=== PATIENT | male | born 1960 | race Caucasian/White ===

== ENCOUNTER → 2016-04-18 | Outpatient (CLI) | payer BC ==
[2016-04-18 10:35] LABS: MICROSCOPIC INDICATED? MAN NO (NO)
== END ==
LOC: M LAB 07:37
PROVIDERS: ATTEND Internal Medicine Cardiovascular Disease
DX: I10 Essential (primary) hypertension (principal)

== ENCOUNTER → 2016-04-18 | Outpatient (CLI) | payer BC ==
--- NOTE | 2016-04-18 10:12 | REP ---
CHEST, TWO VIEWS: Two views of the chest is performed. There are no prior studies for comparison. There is a somewhat nodular opacity medially at the left lung base on the retrocardiac region measuring 1.7 cm in diameter. There is no definite infiltrate. The heart appears mildly prominent in size. There is some tortuosity of the thoracic aorta. There are degenerative changes of the spine. IMPRESSION: Somewhat nodular opacity medial left base. Recommend CT of the chest to further evaluate. No infiltrate. Probable mild cardiomegaly. Signed by Caleb Hernández MD 04/18/2016 01:13 P
== END ==
LOC: M RAD 07:20
PROVIDERS: ATTEND Family Medicine
DX: I10 Essential (primary) hypertension (principal); R91.8 Other nonspecific abnormal finding of lung field

== ENCOUNTER → 2016-04-24 | Outpatient (CLI) | payer BC ==
[~2016-04-24] MED LIST: ISOVUE-370 76% 100ML VIAL (Q9967) As Ordered ONE
--- NOTE | 2016-04-25 04:37 | REP ---
Clinical: Possible nodule by recent chest x-ray. Technique: Axial contrast enhanced images from the thoracic inlet to the upper abdomen using 100 ml Isovue 370 intravenous contrast material with coronal and sagittal re-formations. Findings: The bilateral lung ocasio are well-aerated, symmetric, and clear. No acute pulmonary parenchymal consolidation, nodule or mass lesion is appreciated. No pleural effusion/reaction or pneumothorax. Tracheobronchial tree is patent. No adenopathy. Mediastinum demonstrates normal heart/pericardium and thoracic aorta. Limited upper abdomen demonstrates fatty infiltration to the liver. Impression: 1. Normal contrast enhanced chest CT. 2. Suspicious opacity by a recent chest x-ray may have represented summation shadows rather than true nodule or mass lesion. Signed by Darien Iniguez MD 04/25/2016 04:29 A
== END ==
LOC: M RAD 13:56
PROVIDERS: ATTEND Family Medicine
DX: R91.8 Other nonspecific abnormal finding of lung field (principal)
CPT/HCPCS: 71260; Q9967

== ENCOUNTER → 2016-05-02 | Outpatient (CLI) | payer BC ==
[2016-05-02 13:15] LABS: ANION GAP 6 MEQ/L (8-16); BLOOD UREA NITROGEN 21 MG/DL (7-18); CALCIUM LEVEL 9.2 MG/DL (8.5-10.1); CARBON DIOXIDE LEVEL 32 MEQ/L (21-32); CHLORIDE LEVEL 102 MEQ/L (98-107); GLOMERULAR FILTRATION RATE > 60.0 (>56); GLUCOSE, FASTING 126 MG/DL (70-105); POTASSIUM SERUM 4.1 MEQ/L (3.5-5.1); SODIUM LEVEL 140 MEQ/L (136-145)
== END ==
LOC: M SMT 09:22
PROVIDERS: ATTEND Family Medicine
DX: E11.9 Type 2 diabetes mellitus without complications (principal)

== ENCOUNTER → 2016-06-22 | Outpatient (CLI) | payer BC ==
--- NOTE | 2016-06-24 13:36 | SLEEPCENT ---
DATE OF STUDY: 06/22/2016 ORDERING PROVIDER: Shannon Jessica NP Nocturnal polysomnography was performed for evaluation of sleep apnea syndrome symptoms in this patient with a history of hypertension and diabetes. 8 hours and 12 minutes of data were reviewed. There were 384 minutes of sleep identified. Sleep latency was short at 5.5 minutes. Rapid eye movement (REM) sleep was prolonged at 233 minutes. Sleep architecture improved after interventions were made. Overall sleep efficiency was 79%. The patient's electrocardiogram (EKG) showed a sinus rhythm with an average heart rate of 60 beats per minute. Rate variability was seen surrounding respiratory events. Rate ranged 50-80 beats per minute. Electroencephalogram (EEG) showed fairly normal waveforms for awake and sleep. There were no focal events identified. There were 209 respiratory events identified of 10 seconds in duration or greater for an apnea-hypopnea index of 32.6. The events were primarily obstructive, not exclusive to sleep stage or body posture. Arousals from respiratory events occurred 21.8 times per hour, and oxygen desaturations were seen into the 70s. Having met established protocol, testing was stopped shortly after midnight for the application of pressure therapy. The patient was fit with a [employer] Quattro full face mask of large size. 5 cm of water pressure were applied to the circuit, and the lights were extinguished. Throughout the remaining portion of the study, pressure was titrated to an optimal of 13 cm, with which the patient slept through REM without respiratory event or oxygen desaturation. Some minor snoring through the mask was noted. IMPRESSION: Severe obstructive sleep apnea syndrome (G47.33). Apnea-hypopnea index 32.6. RECOMMENDATION: Nightly use of pressure therapy 13 cm of water.
== END ==
LOC: M SLEEP 19:50
PROVIDERS: ATTEND Nurse Practitioner Adult Health
DX: G47.33 Obstructive sleep apnea (adult) (pediatric) (principal)

== ENCOUNTER → 2016-07-11 | Outpatient (CLI) | payer BC ==
[2016-07-11 14:09] LABS: ALBUMIN 3.6 GM/DL (3.2-5.2); ALBUMIN/GLOBULIN RATIO 1.06 (1.00-1.93); ALKALINE PHOSPHATASE 71 U/L (45-117); ALT/SGPT 47 U/L (12-78); ANION GAP 7 MEQ/L (8-16); AST/SGOT 25 U/L (15-37); BILIRUBIN,TOTAL 0.8 MG/DL (0.2-1.0); BLOOD UREA NITROGEN 23 MG/DL (7-18); CALCIUM LEVEL 8.5 MG/DL (8.5-10.1); CARBON DIOXIDE LEVEL 32 MEQ/L (21-32); CHLORIDE LEVEL 101 MEQ/L (98-107); GLOMERULAR FILTRATION RATE > 60.0 (>56); GLUCOSE, FASTING 141 MG/DL (70-105); SODIUM LEVEL 140 MEQ/L (136-145)
== END ==
LOC: M SMT 08:00
PROVIDERS: ATTEND Family Medicine
DX: E11.9 Type 2 diabetes mellitus without complications (principal)

== ENCOUNTER → 2016-10-09 | Outpatient (CLI) | payer BC ==
[2016-10-09 13:39] LABS: BASO % 0.5 % (0.0-1.0); EOS # 0.2 K/mm3 (0.0-0.50); EOS % 2.3 % (0.0-3.0); LARGE UNSTAINED CELL # 0.1 K/mm3 (0.0-0.4); LARGE UNSTAINED CELL % 1.5 % (0.0-4.0); LYMPH # 1.6 K/mm3 (1.5-4.5); LYMPH % 22.8 % (24.0-44.0); MEAN CORPUSCULAR HEMOGLOBIN 30.5 pg (27.0-33.0); MEAN CORPUSCULAR HGB CONC 35.1 g/dl (32.0-36.5); MEAN CORPUSCULAR VOLUME 86.9 fl (80.0-96.0); MONO # 0.3 K/mm3 (0.0-0.8); MONO % 4.6 % (0.0-5.0); NEUTROPHILS # 4.5 K/mm3 (1.8-7.7); NEUTROPHILS % 68.3 % (36.0-66.0); PLATELET COUNT, AUTOMATED 200 k/mm3 (150-450); WHITE BLOOD COUNT 6.6 K/mm3 (4.0-10.0)
[2016-10-09 16:13] LABS: ALBUMIN 3.5 GM/DL (3.2-5.2); ALKALINE PHOSPHATASE 69 U/L (45-117); ALT/SGPT 43 U/L (12-78); ANION GAP 6 MEQ/L (8-16); AST/SGOT 21 U/L (15-37); BILIRUBIN,TOTAL 0.6 MG/DL (0.2-1.0); BLOOD UREA NITROGEN 22 MG/DL (7-18); CALCIUM LEVEL 8.5 MG/DL (8.5-10.1); CARBON DIOXIDE LEVEL 30 MEQ/L (21-32); CHLORIDE LEVEL 103 MEQ/L (98-107); CHOLESTEROL LEVEL 136 MG/DL (<200); CREATININE FOR GFR 1.26 MG/DL (0.70-1.30); GLOMERULAR FILTRATION RATE > 60.0 (>56); GLUCOSE, FASTING 130 MG/DL (70-105); POTASSIUM SERUM 4.2 MEQ/L (3.5-5.1); SODIUM LEVEL 139 MEQ/L (136-145); TRIGLYCERIDES LEVEL 117 MG/DL (<150)
== END ==
LOC: M SMT 08:16
PROVIDERS: ATTEND Family Medicine
DX: E11.9 Type 2 diabetes mellitus without complications (principal); E66.01 Morbid (severe) obesity due to excess calories

== ENCOUNTER → 2017-04-10 | Outpatient (REF) | payer BC ==
[2017-04-10 14:46] LABS: ALBUMIN 3.7 GM/DL (3.2-5.2); ALBUMIN/GLOBULIN RATIO 1.06 (1.00-1.93); ALKALINE PHOSPHATASE 72 U/L (45-117); ALT/SGPT 32 U/L (12-78); ANION GAP 8 MEQ/L (8-16); AST/SGOT 20 U/L (7-37); BILIRUBIN,TOTAL 0.7 MG/DL (0.2-1.0); BLOOD UREA NITROGEN 20 MG/DL (7-18); CALCIUM LEVEL 8.7 MG/DL (8.5-10.1); CARBON DIOXIDE LEVEL 31 MEQ/L (21-32); CHLORIDE LEVEL 102 MEQ/L (98-107); CREATININE FOR GFR 1.21 MG/DL (0.70-1.30); GLOMERULAR FILTRATION RATE > 60.0 (>56); GLUCOSE, FASTING 106 MG/DL (70-105); POTASSIUM SERUM 4.3 MEQ/L (3.5-5.1); SODIUM LEVEL 141 MEQ/L (136-145); TOTAL PROTEIN 7.2 GM/DL (6.4-8.2)
[2017-04-10 15:53] LABS: ESTIMATED AVERAGE GLUCOSE 128 MG/DL (60-110); HEMOGLOBIN A1c 6.1 %
== END ==
LOC: M LABSMT 13:44
DX: E11.9 Type 2 diabetes mellitus without complications (principal); I10 Essential (primary) hypertension
CPT/HCPCS: 80053

== ENCOUNTER → 2017-07-27 | Outpatient (CLI) | payer BC ==
[2017-07-27 14:33] LABS: ANION GAP 6 MEQ/L (8-16); BLOOD UREA NITROGEN 19 MG/DL (7-18); CALCIUM LEVEL 8.5 MG/DL (8.5-10.1); CARBON DIOXIDE LEVEL 30 MEQ/L (21-32); CHLORIDE LEVEL 106 MEQ/L (98-107); CHOLESTEROL LEVEL 104 MG/DL (<200); CREATININE FOR GFR 1.19 MG/DL (0.70-1.30); GLOMERULAR FILTRATION RATE > 60.0 (>56); GLUCOSE, FASTING 116 MG/DL (70-100); HDL CHOLESTEROL 37 MG/DL (>40); LDL CHOLESTEROL 51.6 MG/DL (<100); NON-HDL-C 67 MG/DL; POTASSIUM SERUM 4.3 MEQ/L (3.5-5.1); SODIUM LEVEL 142 MEQ/L (136-145); TRIGLYCERIDES LEVEL 77 MG/DL (<150)
[2017-07-27 14:45] LABS: ESTIMATED AVERAGE GLUCOSE 126 MG/DL (60-110)
[2017-07-27 14:48] LABS: MALB URINE SIEMENS 15.8 MG/L; MAU/CREAT RATIO 8.9 MCG/MG (0.0-30.0)
== END ==
LOC: M SMT 08:25
DX: E11.9 Type 2 diabetes mellitus without complications (principal); E78.2 Mixed hyperlipidemia
CPT/HCPCS: 83036

== ENCOUNTER → 2018-02-18 | Outpatient (CLI) | payer BC ==
[2018-02-18 14:50] LABS: ANION GAP 9 MEQ/L (8-16); BLOOD UREA NITROGEN 21 MG/DL (7-18); CALCIUM LEVEL 8.7 MG/DL (8.5-10.1); CARBON DIOXIDE LEVEL 29 MEQ/L (21-32); CHLORIDE LEVEL 101 MEQ/L (98-107); CREATININE FOR GFR 1.31 MG/DL (0.70-1.30); GLOMERULAR FILTRATION RATE > 60.0 (>56); GLUCOSE, FASTING 109 MG/DL (70-100); POTASSIUM SERUM 4.2 MEQ/L (3.5-5.1); SODIUM LEVEL 139 MEQ/L (136-145)
[2018-02-18 15:29] LABS: ESTIMATED AVERAGE GLUCOSE 128 MG/DL (60-110); HEMOGLOBIN A1c 6.1 %
== END ==
LOC: M SMT 08:09
DX: Z00.00 Encounter for general adult medical examination without abnormal findings (principal)
CPT/HCPCS: 83036

== ENCOUNTER → 2018-05-25 | Outpatient (CLI) | payer BC ==
[2018-05-25 11:47] LABS: ALBUMIN 3.5 GM/DL (3.2-5.2); ALT/SGPT 35 U/L (12-78); BILIRUBIN,TOTAL 0.5 MG/DL (0.2-1.0); BLOOD UREA NITROGEN 18 MG/DL (7-18); CALCIUM LEVEL 8.6 MG/DL (8.5-10.1); CARBON DIOXIDE LEVEL 30 MEQ/L (21-32); CHLORIDE LEVEL 104 MEQ/L (98-107); CHOLESTEROL LEVEL 114 MG/DL (<200); CHOLESTEROL RISK RATIO 2.923 (<5); CREATININE FOR GFR 1.16 MG/DL (0.70-1.30); FREE T4 1.24 NG/DL (0.76-1.46); GLOMERULAR FILTRATION RATE > 60.0 (>56); GLUCOSE, FASTING 111 MG/DL (70-100); HDL CHOLESTEROL 39 MG/DL (>40); LDL CHOLESTEROL 48 MG/DL (<100); NON-HDL-C 75 MG/DL; POTASSIUM SERUM 4.5 MEQ/L (3.5-5.1); SODIUM LEVEL 142 MEQ/L (136-145); TRIGLYCERIDES LEVEL 133 MG/DL (<150)
[2018-05-25 12:55] LABS: HEMOGLOBIN A1c 6.1 %
== END ==
LOC: M SMT 08:01
PROVIDERS: ATTEND Physician Assistant
DX: E11.9 Type 2 diabetes mellitus without complications (principal); E78.2 Mixed hyperlipidemia

== ENCOUNTER → 2018-09-16 | Outpatient (CLI) | payer BC ==
[2018-09-16 13:47] LABS: BLOOD UREA NITROGEN 22 MG/DL (7-18); CALCIUM LEVEL 8.7 MG/DL (8.5-10.1); CARBON DIOXIDE LEVEL 30 MEQ/L (21-32); CHLORIDE LEVEL 104 MEQ/L (98-107); CREATININE FOR GFR 1.22 MG/DL (0.70-1.30); GLOMERULAR FILTRATION RATE > 60.0 (>56); GLUCOSE, FASTING 114 MG/DL (70-100); POTASSIUM SERUM 4.2 MEQ/L (3.5-5.1); SODIUM LEVEL 141 MEQ/L (136-145)
[2018-09-16 13:55] LABS: HEMOGLOBIN A1c 6.4 %
[2018-09-16 14:11] LABS: MALB URINE SIEMENS 14.5 MG/L; MAU/CREAT RATIO 8.4 MCG/MG (0.0-30.0)
== END ==
LOC: M SMT 08:48
PROVIDERS: ATTEND Physician Assistant
DX: E11.9 Type 2 diabetes mellitus without complications (principal); Z12.5 Encounter for screening for malignant neoplasm of prostate

== ENCOUNTER → 2018-12-10 | Outpatient (CLI) | payer BC ==
[2018-12-10 10:27] LABS: ALBUMIN 3.6 GM/DL (3.2-5.2); ALT/SGPT 32 U/L (12-78); BILIRUBIN,TOTAL 0.7 MG/DL (0.2-1.0); BLOOD UREA NITROGEN 21 MG/DL (7-18); CALCIUM LEVEL 8.7 MG/DL (8.5-10.1); CARBON DIOXIDE LEVEL 31 MEQ/L (21-32); CHLORIDE LEVEL 104 MEQ/L (98-107); CHOLESTEROL LEVEL 102 MG/DL (<200); CHOLESTEROL RISK RATIO 2.684 (<5); CREATININE FOR GFR 1.24 MG/DL (0.70-1.30); FREE T4 1.22 NG/DL (0.76-1.46); GLOMERULAR FILTRATION RATE > 60.0 (>56); GLUCOSE, FASTING 128 MG/DL (70-100); HDL CHOLESTEROL 38 MG/DL (>40); LDL CHOLESTEROL 47 MG/DL (<100); NON-HDL-C 64 MG/DL; SODIUM LEVEL 141 MEQ/L (136-145); TOTAL PROTEIN 6.8 GM/DL (6.4-8.2); TRIGLYCERIDES LEVEL 84 MG/DL (<150)
[2018-12-10 10:41] LABS: HEMOGLOBIN A1c 6.3 %
== END ==
LOC: M SMT 08:06
PROVIDERS: ATTEND Physician Assistant
DX: E11.9 Type 2 diabetes mellitus without complications (principal); E78.2 Mixed hyperlipidemia

== ENCOUNTER → 2019-05-02 | Outpatient (CLI) | payer BC ==
[2019-05-02 09:58] LABS: BLOOD UREA NITROGEN 20 MG/DL (7-18); CALCIUM LEVEL 9.1 MG/DL (8.5-10.1); CARBON DIOXIDE LEVEL 29 MEQ/L (21-32); CHLORIDE LEVEL 104 MEQ/L (98-107); CREATININE FOR GFR 1.13 MG/DL (0.70-1.30); GLOMERULAR FILTRATION RATE > 60.0 (>56); GLUCOSE, FASTING 132 MG/DL (70-100); POTASSIUM SERUM 4.1 MEQ/L (3.5-5.1); SODIUM LEVEL 140 MEQ/L (136-145)
[2019-05-02 10:34] LABS: HEMOGLOBIN A1c 6.7 %
[2019-05-03 14:10] LABS: PSA TOTAL 2.5 ng/mL (0.0-4.0)
== END ==
LOC: M PLALAB 08:10
PROVIDERS: ATTEND Physician Assistant
DX: Z00.00 Encounter for general adult medical examination without abnormal findings (principal); Z12.5 Encounter for screening for malignant neoplasm of prostate; E11.9 Type 2 diabetes mellitus without complications

== ENCOUNTER 2019-07-10 04:17 | Emergency (ER) | payer BC ==
[~2019-07-10] VITALS: Ht 175.3 cm; Wt 158.1 kg
[2019-07-10] MEDS ORDERED: NS 1,000 ML IV ONE (05:00)
[2019-07-10 05:18] LABS: BASO % 0.1 % (0.0-1.0); EOS # 0.1 10^3/uL (0.0-0.5); EOS % 1.4 % (0.0-3.0); HEMATOCRIT 43.5 % (42.0-52.0); HEMOGLOBIN 14.4 g/dl (13.5-17.5); LYMPH % 14.6 % (24.0-44.0); MEAN CORPUSCULAR HEMOGLOBIN 29.3 pg (27.0-33.0); MEAN CORPUSCULAR HGB CONC 33.1 g/dl (32.0-36.5); MEAN CORPUSCULAR VOLUME 88.4 fl (80.0-96.0); MONO # 0.3 10^3/uL (0.0-0.8); MONO % 4.8 % (0.0-5.0); NEUTROPHILS # 5.6 10^3/uL (1.5-8.5); NEUTROPHILS % 78.3 % (36.0-66.0); PLATELET COUNT, AUTOMATED 188 10^3/uL (150-450); RED BLOOD COUNT 4.92 10^6/uL (4.30-6.10); WHITE BLOOD COUNT 7.1 10^3/uL (4.0-10.0)
--- NOTE | 2019-07-10 05:40 | REPVR ---
PROCEDURE INFORMATION: Exam: CT Abdomen And Pelvis Without Contrast Exam date and time: 07/10/2019 5:02 AM Age: 58 years old Clinical indication: Abdominal pain; Additional info: L colic TECHNIQUE: Imaging protocol: Computed tomography of the abdomen and pelvis without contrast. Radiation optimization: All CT scans at this facility use at least one of these dose optimization techniques: automated exposure control; mA and/or kV adjustment per patient size (includes targeted exams where dose is matched to clinical indication); or iterative reconstruction. COMPARISON: No relevant prior studies available. FINDINGS: Liver: Diffuse fatty infiltration. Mild hepatomegaly, measuring 21.8 cm in length. Gallbladder and bile ducts: No calcified stones. No ductal dilation. Pancreas: Unremarkable. No ductal dilatation. Spleen: Mild splenomegaly. Spleen measures 13.2 cm in length. Adrenals: Unremarkable. No mass. Kidneys and ureters: There is mild left hydronephrosis with perinephric stranding and trace fluid. There is left hydroureter with dilatation of the left ureter down to the level of the urinary bladder where there is a 2-3 mm calculus, likely perched at the left UVJ. Bilateral nephrolithiasis. 4 mm calculus within the midpole of the right kidney and 3 mm calculus within the midpole of the left kidney. Stomach and bowel: No obstruction. No mucosal thickening. Appendix: No evidence of appendicitis. Intraperitoneal space: No free air. No significant fluid collection. Vasculature: Mild atherosclerosis. No abdominal aortic aneurysm. Lymph nodes: No enlarged lymph nodes. Bladder: Essentially decompressed urinary bladder. Reproductive: Mild enlargement of the prostate gland. Bones/joints: Degenerative change involving the sacroiliac joints with an anterior bridging osteophyte on the right. Mild degenerative change involving the hip joints. Degenerative change lower thoracic and lumbar spine. Soft tissues: Bilateral fat containing inguinal hernias. IMPRESSION: 1. Left obstructive uropathy with mild left hydronephrosis and hydroureter secondary to a 2-3 mm calculus within the urinary bladder which appears perched at the left UVJ. There is associated left perinephric stranding and trace fluid. 2. Bilateral nephrolithiasis. 3. Hepatosplenomegaly with diffuse fatty infiltration of the liver. 4. Additional non-emergent findings, as discussed above. Electronically signed by: Darien Goodwin On 07/10/2019 05:39:39 AM
[2019-07-10] MEDS ORDERED: MORPHINE 2 MG/ML 1ML VIAL (J2270) IV ONE (06:00)
[2019-07-10] MEDS ORDERED: TAMSULOSIN 0.4 MG CAP PO ONE (06:00)
[2019-07-10 06:05] LABS: ALBUMIN 3.9 GM/DL (3.2-5.2); BILIRUBIN,DIRECT 0.3 MG/DL (0.0-0.2); BILIRUBIN,TOTAL 0.8 MG/DL (0.2-1.0); CALCIUM LEVEL 9.2 MG/DL (8.5-10.1); CREATININE FOR GFR 1.51 MG/DL (0.70-1.30); TOTAL PROTEIN 7.3 GM/DL (6.4-8.2)
[2019-07-10] MEDS ORDERED: FLOM0.4C39 PO (06:19)
[2019-07-10 06:31] VITALS: BP 155/82
--- NOTE | 2019-07-10 06:44 | ED PDOC ---
Post-Departure Follow-Up dr andres faxed formal report of ct abd/p for fu Ana Paula Ponce MD Jul 10, 2019 06:44
== END 2019-07-10 06:33 | disposition home or self-care (01) ==
LOC: M ED 04:17
DX: N20.1 Calculus of ureter (principal); I10 Essential (primary) hypertension; E66.9 Obesity, unspecified

== ENCOUNTER → 2019-07-28 | Outpatient (CLI) | payer BC ==
[~2019-07-28] MED LIST changes: +FLOM0.4C39 PO; -ISOVUE-370 76% 100ML VIAL (Q9967) As Ordered ONE; +KETO10TAB PO; +LOSA100T8 PO; +METF10004 PO; +ONDA4TAB6 PO; +POTA1TAB23 PO; +SIMV20TA22 PO; +TRUL0.5I SQ
[2019-07-28 12:25] LABS: ALT/SGPT 55 U/L (12-78); BLOOD UREA NITROGEN 18 MG/DL (7-18); CARBON DIOXIDE LEVEL 32 MEQ/L (21-32); CHLORIDE LEVEL 104 MEQ/L (98-107); CHOLESTEROL LEVEL 87 MG/DL (<200); CHOLESTEROL RISK RATIO 2.636 (<5); CREATININE FOR GFR 1.25 MG/DL (0.70-1.30); FREE T4 1.27 NG/DL (0.76-1.46); GLOMERULAR FILTRATION RATE > 60.0 (>56); GLUCOSE, FASTING 106 MG/DL (70-100); HDL CHOLESTEROL 33 MG/DL (>40); LDL CHOLESTEROL 41 MG/DL (<100); NON-HDL-C 54 MG/DL; POTASSIUM SERUM 4.2 MEQ/L (3.5-5.1); SODIUM LEVEL 139 MEQ/L (136-145); TOTAL PROTEIN 7.4 GM/DL (6.4-8.2); TRIGLYCERIDES LEVEL 67 MG/DL (<150)
[2019-07-28 14:08] LABS: HEMOGLOBIN A1c 6.3 %
== END ==
LOC: M PLALAB 08:35
PROVIDERS: ATTEND Physician Assistant
DX: E11.9 Type 2 diabetes mellitus without complications (principal); E78.2 Mixed hyperlipidemia

== ENCOUNTER 2019-07-31 18:43 | Emergency (ER) | payer BC ==
[~2019-07-31] VITALS: Ht 175.3 cm; Wt 153.6 kg
[~2019-07-31 18:43] MED LIST changes: -KETO10TAB PO; -LOSA100T8 PO; -METF10004 PO; -ONDA4TAB6 PO; -POTA1TAB23 PO; -SIMV20TA22 PO; -TRUL0.5I SQ
[2019-07-31] MEDS ORDERED: POTA1TAB23 PO (18:51)
[2019-07-31] MEDS ORDERED: TRUL0.5I SC (18:51)
[2019-07-31] MEDS ORDERED: METF10004 PO (18:51)
[2019-07-31] MEDS ORDERED: SIMV20TA22 PO (18:51)
[2019-07-31] MEDS ORDERED: LOSA100T8 PO (18:51)
[2019-07-31] MEDS ORDERED: ONDANSETRON 4MG/2ML VIAL IV ONE (19:30)
[2019-07-31] MEDS ORDERED: KETOROLAC 30 MG/ML 1ML VIAL IV ONE ×2 (19:30)
[2019-07-31] MEDS ORDERED: NS 1,000 ML IV ONE (19:30)
[2019-07-31 19:55] LABS: BASO % 0.2 % (0.0-1.0); EOS # 0.1 10^3/uL (0.0-0.5); EOS % 0.8 % (0.0-3.0); HEMATOCRIT 44.4 % (42.0-52.0); HEMOGLOBIN 14.8 g/dl (13.5-17.5); LYMPH # 1.2 10^3/uL (1.5-5.0); LYMPH % 12.4 % (24.0-44.0); MEAN CORPUSCULAR HEMOGLOBIN 29.4 pg (27.0-33.0); MEAN CORPUSCULAR HGB CONC 33.3 g/dl (32.0-36.5); MEAN CORPUSCULAR VOLUME 88.1 fl (80.0-96.0); MONO # 0.4 10^3/uL (0.0-0.8); MONO % 4.6 % (0.0-5.0); NEUTROPHILS # 7.9 10^3/uL (1.5-8.5); NEUTROPHILS % 81.6 % (36.0-66.0); PLATELET COUNT, AUTOMATED 212 10^3/uL (150-450); RED BLOOD COUNT 5.04 10^6/uL (4.30-6.10); WHITE BLOOD COUNT 9.6 10^3/uL (4.0-10.0)
[2019-07-31] MEDS ORDERED: ONDA4TAB6 PO (20:52)
[2019-07-31] MEDS ORDERED: FLOM0.4C39 PO (20:52)
[2019-07-31] MEDS ORDERED: KETO10TAB PO (20:59)
[2019-07-31] MEDS ORDERED: TAMSULOSIN 0.4 MG CAP PO ONE (21:00)
[2019-07-31 21:04] VITALS: BP 132/65
--- NOTE | 2019-07-31 21:05 | REPVR ---
PROCEDURE INFORMATION: Exam: US Retroperitoneal Limited, Kidneys Exam date and time: 07/31/2019 8:45 PM Age: 58 years old Clinical indication: Left flank pain TECHNIQUE: Imaging protocol: Real-time ultrasound of the retroperitoneum with image documentation. Examination was focused on the kidneys. COMPARISON: CT ABD PELVIS W/O CONTRAST 07/10/2019 4:59 AM FINDINGS: Liver: The echogenicity of the liver is increased, which is compatible with fatty liver infiltration. No liver lesion is identified from the images obtained. The contour of the liver is smooth. Right kidney: The right kidney is normal in appearance and measures 13.9 cm in length. There is no renal cortical thinning. The renal cortical echogenicity is within normal limits. No renal lesion is seen. There is no hydronephrosis. No obvious stones are seen in the renal collecting system. Left kidney: The left kidney is normal in appearance and measures 13.3 cm in length. There is no renal cortical thinning. The renal cortical echogenicity is within normal limits. No renal lesion is seen. There is no hydronephrosis. No obvious stones are seen in the renal collecting system. Bladder: The partially distended urinary bladder is unremarkable. The bilateral ureteral jets were not visualized in the urinary bladder. IMPRESSION: 1. Normal ultrasound of the kidneys. No hydronephrosis. 2. Fatty liver. Electronically signed by: Roge Ramos On 07/31/2019 21:04:27 PM
--- NOTE | 2019-08-01 03:57 | REP ---
Clinical: Left flank pain. Technique: Two supine views of the abdomen and pelvis. Findings: No obvious urinary tract calcifications are identified. Bowel gas pattern is nonspecific. No organomegaly. No foreign body. Skeletal structures are intact. Impression: No obvious urinary tract calcifications. Electronically Signed by Darien Iniguez MD 08/01/2019 03:48 A
== END 2019-07-31 21:11 | disposition home or self-care (01) ==
LOC: M ED 18:43
DX: N23 Unspecified renal colic (principal); K76.0 Fatty (change of) liver, not elsewhere classified; Z79.899 Other long term (current) drug therapy
CPT/HCPCS: 74018; 76775; 80047; 81001; 85025; 87086; 96361; 96374; 96375; 96376; 99284; J1885; J2405

== ENCOUNTER 2019-08-01 01:21 | Emergency (ER) | payer BC ==
[~2019-08-01] VITALS: Ht 175.3 cm; Wt 150.0 kg
[~2019-08-01 01:21] MED LIST changes: +KETO10TAB PO; +LOSA100T8 PO; +METF10004 PO; +ONDA4TAB6 PO; +POTA1TAB23 PO; +SIMV20TA22 PO; +TRUL0.5I SC
[2019-08-01] MEDS ORDERED: KETOROLAC 60 MG/2 ML VIAL IM ONE (02:00)
[2019-08-01] MEDS ORDERED: OXYCODONE/APAP 5MG/325MG(BULK FOR ED) 1 TABLET PO ONE (02:00)
[2019-08-01 02:38] VITALS: BP 158/81
== END 2019-08-01 02:40 | disposition home or self-care (01) ==
LOC: M ED 01:21
DX: N23 Unspecified renal colic (principal); Z87.442 Personal history of urinary calculi; Z79.899 Other long term (current) drug therapy; Z79.84 Long term (current) use of oral hypoglycemic drugs
CPT/HCPCS: 96372; 99283; J1885

== ENCOUNTER 2019-08-07 21:52 | Inpatient (IN) | payer BC ==
[~2019-08-07] VITALS: Ht 175.3 cm; Wt 155.5 kg
[2019-08-07 14:00] VITALS: BP 136/75
[2019-08-07] MEDS ORDERED: NS 1,000 ML IV ONE (22:45)
[2019-08-07 22:52] LABS: BASO % 0.2 % (0.0-1.0); EOS # 0.1 10^3/uL (0.0-0.5); EOS % 2.2 % (0.0-3.0); HEMATOCRIT 39.9 % (42.0-52.0); HEMOGLOBIN 13.2 g/dl (13.5-17.5); LYMPH % 18.5 % (24.0-44.0); MEAN CORPUSCULAR HEMOGLOBIN 29.3 pg (27.0-33.0); MEAN CORPUSCULAR HGB CONC 33.1 g/dl (32.0-36.5); MEAN CORPUSCULAR VOLUME 88.7 fl (80.0-96.0); MONO # 0.3 10^3/uL (0.0-0.8); MONO % 6.1 % (0.0-5.0); NEUTROPHILS # 3.9 10^3/uL (1.5-8.5); NEUTROPHILS % 72.8 % (36.0-66.0); PLATELET COUNT, AUTOMATED 173 10^3/uL (150-450); WHITE BLOOD COUNT 5.4 10^3/uL (4.0-10.0)
[2019-08-07] MEDS ORDERED: ONDANSETRON 4MG/2ML VIAL IV ONE (23:00)
--- NOTE | 2019-08-07 23:09 | REPVR ---
PROCEDURE INFORMATION: Exam: CT Abdomen And Pelvis Without Contrast Exam date and time: 08/07/2019 10:52 PM Age: 58 years old Clinical indication: Abdominal pain; Additional info: R flank pain, h/o b/l kidney stones TECHNIQUE: Imaging protocol: Computed tomography of the abdomen and pelvis without contrast. Radiation optimization: All CT scans at this facility use at least one of these dose optimization techniques: automated exposure control; mA and/or kV adjustment per patient size (includes targeted exams where dose is matched to clinical indication); or iterative reconstruction. COMPARISON: CT ABD PELVIS W/O CONTRAST 07/10/2019 4:59 AM FINDINGS: Liver: A few small hepatic hypodensities are too small to characterize. Gallbladder and bile ducts: Normal. No calcified stones. No ductal dilation. Pancreas: Normal. No ductal dilation. Spleen: Normal. No splenomegaly. Adrenals: Normal. No mass. Kidneys and ureters: Mild right-sided hydronephrosis and hydroureter secondary to 3 mm by 3 mm calculus at the mid to distal right ureter. Mild left-sided hydroureteronephrosis secondary to 3 mm x 3 mm calculus at the left UVJ. Stomach and bowel: Unremarkable. No obstruction. No mucosal thickening. Appendix: No evidence of appendicitis. Intraperitoneal space: Unremarkable. No free air. No significant fluid collection. Vasculature: Vascular calcification. Lymph nodes: Unremarkable. No enlarged lymph nodes. Bladder: Unremarkable as visualized. Reproductive: Unremarkable as visualized. Bones/joints: There are degenerative changes involving the spine. Soft tissues: Small fat containing umbilical hernia. There are bilateral fat containing inguinal hernias. IMPRESSION: 1. Mild right-sided hydronephrosis and hydroureter secondary to 3 mm by 3 mm calculus at the mid to distal right ureter. 2. Mild left-sided hydroureteronephrosis secondary to 3 mm x 3 mm calculus at the left UVJ. Electronically signed by: Delroy Singh On 08/07/2019 23:08:51 PM
[2019-08-07 23:27] LABS: ALBUMIN 3.7 GM/DL (3.2-5.2); BILIRUBIN,DIRECT 0.3 MG/DL (0.0-0.2); CALCIUM LEVEL 8.2 MG/DL (8.5-10.1); CREATININE FOR GFR 2.24 MG/DL (0.70-1.30); GLOMERULAR FILTRATION RATE 32.3 (>56); POTASSIUM SERUM 4.2 MEQ/L (3.5-5.1); TOTAL PROTEIN 7.1 GM/DL (6.4-8.2)
[2019-08-07] MEDS ORDERED: MORPHINE 4 MG/ML 1ML VIAL/SYRINGE (J2270) IV ONE (23:30)
[2019-08-07] MEDS ORDERED: ONDA4TAB6 PO (23:59)
[2019-08-07] MEDS ORDERED: KETO10TAB PO (23:59)
[2019-08-07] MEDS ORDERED: FLOM0.4C39 PO (23:59)
[2019-08-08] VITALS (9 sets, daily range): BP systolic 136–148; BP diastolic 54–81
[2019-08-08] MEDS ORDERED: UNRESOLVED CLARIFICATION ENTRY XX SCH (00:01)
[2019-08-08] MEDS ORDERED: LOSA100T50 PO (00:01)
[2019-08-08] MEDS ORDERED: AMLO5TAB6 PO (00:01)
[2019-08-08] MEDS ORDERED: DEXTROSE 50% 50 ML SYRINGE IV PRN (01:00)
[2019-08-08] MEDS ORDERED: GLUCAGON INJ 1MG VIAL SC PRN (01:00)
[2019-08-08] MEDS ORDERED: ONDANSETRON 4MG/2ML VIAL IV PRN ×2 (01:00→18:15)
[2019-08-08] MEDS ORDERED: GLUCOSE 4GM CHEW TABLET PO PRN (01:00)
[2019-08-08] MEDS ORDERED: TAMSULOSIN 0.4 MG CAP PO ONE (01:30)
[2019-08-08 01:34] LABS: URIC ACID 7.5 MG/DL (3.5-7.2)
--- NOTE | 2019-08-08 01:41 | HPEPDOC ---
General Date of Admission 08/08/2019 Date of Service: August 08, 2019 Attending Physician: MAHESH STYLES MD Chief Complaint The patient is a 58-year-old male admitted with a reason for visit of Flank Pain. Source: Patient Exam Limitations: No limitations Timing/Duration: 4-6 hours, Week(s) (intermittent over the last ) History of Present Illness 58 yo M with a history of morbid obesity, NIDDM, HTN and a recent history of renal colic with multiple kidney stones and has presented to the ED 3 times in the last 1 month with various flank pain complaints and been treated for pain with Ketoralac, given flomax and referred to urology in the outpatient setting, who now returns with acute R flank pain and dysuria without sea hematuria. In the ED he was found to have worsening renal function with Cr now 2.24 from 1.25 just 10d prior with CT A/P showing bilateral mild hydronephrosis with L UVJ 3mm x 3mm stone and a R mid distabl ureteral 3mm stone. He also reported recently running out of hte flomax he got in the ED and was still trying to set up an appointment with urology. WBC was 5.4, hgb 13.2 and he had no reports of fever, chills, nausea, emesis or hematuria. Of note, he also has not travelled, had no sick contacts, without history of dysnea, cough, chest pain, URI symptoms. While in the ED, Dr. Nielson was consulted and he recommended him to be made NPO with plan for taking him to the OR tomorrow. Home Medications Scheduled Amlodipine Besylate (Amlodipine Besylate) 5 Mg Tablet, 5 MG PO DAILY, (Reported) Dulaglutide (Trulicity) 1.5 Mg/0.5 Ml Pen.injctr, 1.5 MG SC 1XWK, (Reported) THURSDAY Losartan Potassium (Losartan Potassium) 100 Mg Tablet, 100 MG PO DAILY, (Reported) Metformin HCl (Metformin HCl) 1,000 Mg Tablet, 1,000 MG PO BID, (Reported) Potassium Chloride (Potassium Chloride) 10 Meq Tablet.er, 10 MEQ PO DAILY, (Reported) Simvastatin (Simvastatin) 20 Mg Tablet, 20 MG PO DAILY, (Reported) Tamsulosin HCl (Flomax) 0.4 Mg Capsule, 0.4 MG PO DAILY, (Reported) Scheduled PRN Ketorolac Tromethamine (Ketorolac Tromethamine) 10 Mg Tablet, 10 MG PO Q8H PRN for PAIN, (Reported) Ondansetron (Ondansetron Odt) 4 Mg Tab.rapdis, 4 MG PO Q6-8HP PRN for nausea/v omiting, (Reported) Allergies Coded Allergies: No Known Allergies (Unverified , 08/07/19) Past Medical History Medical History Morbid obesity, NIDDM, HTN and a recent history of renal colic with multiple kidney stones and has presented to the ED 3 times in the last 1 month with various flank pain complaints Surgical History None Family History Significant Family History: No pertinent family hx Social History * Smoker: Denies Psychosocial History: No pertinent psych hx Lives alone in [place]. has siblings that live locally. Will call them to let them know that he is getting admitted. A-FIB/CHADSVASC A-FIB History Current/History of A-Fib/PAF?: No Current PO Anticoag Therapy: No Age/Risk Factor Scoring CHADSVASC: CHADSVASC Response (Comments) Value Age Risk Factor Age < 65 years old 0 Gender Risk Factor Male 0 Hx of CHF No 0 Hx of HTN Yes 1 Hx of Stroke/TIA/or VTE No 0 Hx of Diabetes Yes 1 Hx of Vascular Disease No 0 Total 2 Treatment Treatment ordered: NONE Reason Anticoagulant not given: Not indicated/[id number] Review of Systems Constitutional: Denies: Chills, Fever, Night Sweats Eyes: Denies: Pain, Vision change ENT: Denies: Head Aches, Ear Pain, Dysphagia Skin: Denies: Rash, Lesions, Breakdown Pulmonary: Denies: Dyspnea, Cough Cardiovascular: Denies: Chest Pain, Palpitations, Orthopnea, Paroxysmal Noc. Dyspnea, Lt Headedness Gastrointestinal: Denies: Nausea, Vomiting, Abdominal Pain, Diarrhea Genitourinary: Reports: Dysuria, Other Symptoms (has flank pain, this time it is in the R side); Denies: Frequency, Incontinence, Hematuria, Retention Hematologic: Denies: Bruising, Bleeding Excessively Endocrine: Denies: Polydipsia, Polyphagia, Polyuria, Heat Intolerance, Cold Intolerance, Other Endocrine Sx Musculoskeletal: Reports: Back Pain (R back), Hand Pain; Denies: Neck Pain, Shoulder Pain, Arm Pain Neurological: Denies: Weakness, Numbness, Change in speech, Confusion Psych: Reports: Mood Normal; Denies: Depression, Memory Issues Physical Examination General Exam: Positive: Alert, No Acute Distress, Other (morbidly obese) Eye Exam: Positive: PERRLA, Conjunctiva & lids normal, EOMI; Negative: Sclera icteric ENT Exam: Positive: Atraumatic, Mucous membr. moist/pink, Pharynx Normal Neck Exam: Positive: Supple; Negative: JVD, thyromegaly Chest Exam: Positive: Clear to auscultation, Normal air movement Heart Exam: Positive: Rate Normal, Regular Rhythm, Normal S1, Normal S2, Murmurs (systolic murmur at RUSB) Telemetry: Positive: No significant arrhythmia Abdomen Exam: Positive: Normal bowel sounds, Soft, Other (R flank with moderate 7/10 on tapping); Negative: Tenderness, Hepatospenomegaly Extremity Exam: Positive: Normal pulses; Negative: Clubbing, Cyanosis, Edema Skin Exam: Positive: Nl turgor and temperature; Negative: Breakdown, Lesion Neuro Exam: Positive: Normal Gait, Normal Speech, Strength at 5/5 X4 ext, Normal Tone, Sensation Intact, Cranial Nerves 3-12 NL Psych Exam: Positive: Mental status NL, Mood NL, Oriented x 3 Vital Signs Vital Signs Date Time Temp Pulse Resp B/P (MAP) Pulse Ox O2 Delivery O2 Flow Rate FiO2 08/07/19 23:49 18 Room Air 08/07/19 22:37 08/07/19 21:53 98.2 63 100 Laboratory Data Labs 24H Laboratory Tests 2 08/07/19 22:46: Immature Granulocyte % (Auto) 0.2, Neutrophils (%) (Auto) 72.8H, Lymphocytes (%) (Auto) 18.5L, Monocytes (%) (Auto) 6.1H, Eosinophils (%) (Auto) 2.2, Basophils (%) (Auto) 0.2, Neutrophils # (Auto) 3.9, Lymphocytes # (Auto) 1.0L, Monocytes # (Auto) 0.3, Eosinophils # (Auto) 0.1, Basophils # (Auto) 0.0, Nucleated Red Blood Cells % (auto) 0.0, Anion Gap 7L, Glomerular Filtration Rate 32.3L, Calcium Level 8.2L, Total Bilirubin 1.0, Direct Bilirubin 0.3H, Aspartate Amino Transf (AST/SGOT) 25, Alanine Aminotransferase (ALT/SGPT) 42, Alkaline Phosphatase 71, Total Protein 7.1, Albumin 3.7, Albumin/Globulin Ratio 1.1, Lipase 370 CBC/BMP Laboratory Tests 08/07/19 22:46 Assessment/Plan 58 yo M with a history of morbid obesity, NIDDM, HTN and a recent history of renal colic with multiple kidney stones and has presented to the ED 3 times in the last 1 month with various flank pain complaints and been treated for pain with Ketoralac, given flomax and referred to urology in the outpatient setting, who now returns with acute R flank pain and dysuria without sea hematuria and found to an CHANO found and bilateral mild hydronephrosis with L UVJ 3mm x 3mm stone and a R mid distabl ureteral 3mm stone who is now being admitted to [facility] for pain control pending urology evaluation tomorrow where he is going to the OR. Nephrolithiasis c/b bilateral hydronephrosis and pain: -Dr. Nielson consulted, NPO for OR tomorrow AM -pain control with morphine [id number] -stop Ketoralac in the setting of CHANO -s/p 1L NS in the ED -D5NS @ 100cc/hr while NPO -rapid covid testing for OR tomorrow -flomax 0.4 daily -uric acid with AM labs -strain urine for stones DM: -hold home trulicity and metformin -SSI Q6H while NPO -FSBG Q6H while NPO -hypoglycemia protocol HTN: -increase home amlodipine from 5 to 10mg while holding ARB in the setting an CHANO CHANO: Likely multifactorial including Ketoralac, ARB, metformin, poor PO and obstructive uropathy -s/p 1L in the ED, continue fluids while NPO -stop all nephrotoxic meds HLD: -continue home simvastatin DVT ppx: TEDs Diet: NPO for OR Dispo: medsurg Plan / VTE VTE Prophylaxis Ordered?: Yes MAHESH STYLES MD August 08, 2019 01:41
[2019-08-08] MEDS: D5W/0.9% SODIUM CHLORIDE 1,000 ML IV SCH ×3 (03:36→19:21)
[2019-08-08] MEDS: HumaLOG INSULIN (NovoLOG) PER UNIT SC SCH ×4 (06:13→21:00)
[2019-08-08] MEDS ORDERED: TAMSULOSIN 0.4 MG CAP PO SCH (09:00)
[2019-08-08] MEDS ORDERED: POTASSIUM CHLORIDE 10 MEQ SR TABLET PO SCH (09:00)
[2019-08-08] MEDS: SIMVASTATIN 20 MG TAB PO SCH (09:37)
[2019-08-08] MEDS: amLODIPine 10 MG TAB PO SCH (09:39)
[2019-08-08] MEDS: ACETAMINOPHEN TAB 650MG DOSE (2X325MG) PO PRN (09:40)
[2019-08-08] MEDS ORDERED: CONRAY-60 60% 50ML VIAL (Q9961) As Ordered ONE ×2 (12:43→16:13)
--- NOTE | 2019-08-08 12:47 | SMCUROLCON ---
Urology Consultation General Date of Consultation 08/08/19 Reason For Consultation This patient is seen for Mika,Bilateral Hydronephrosis & Ureteral Calculi. History of Present Illness The patient is a PMH significant for HTN and HL, admitted last night for MIKA due to b/l obstructing ureteral stones. The patient came in last night w/ acute onset severe R flank pain. He had associated nausea but no vomiting. He notes that he has come to the ER 3 weekends in a row, including last night. The first time he had L flank pain and then he passed a stone. Last weekend the L flank pain came back as he started to pass another stone. He notes that he still has the L flank pain and that he has not seen a stone pass. Right now he has pain on both sides but notes that it is tolerable. He denies dysuria. He notes that he has no voided much since yesterday evening. He denies fevers or chills. He has never had kidney stone surgery before and has never been seen by urology previously. Past Medical History Medical History see HPI Surgical Hstory None Medications Current Medications Current Medications Medications (Trade) Dose Ordered Sig/Jose Route PRN Reason Start Time Stop Time Status Last Admin Dose Admin Acetaminophen (Tylenol Tab) 650 mg Q4H PRN PO PAIN OR FEVER 08/08/19 01:00 08/08/19 09:40 Amlodipine Besylate (Norvasc) 10 mg DAILY PO 08/08/19 09:00 08/08/19 09:39 Dextrose (Dextrose 50%) 25 ml ASDIRECTED PRN IV SEE LABEL COMMENTS 08/08/19 01:00 Dextrose/Sodium Chloride 1,000 ml @ 100 mls/hr Q10H IV 08/08/19 00:56 08/08/19 03:36 Glucagon (Glucagon) 1 mg ASDIRECTED PRN SC SEE LABEL COMMENTS 08/08/19 01:00 Glucose (Glucose) 16 GM ASDIRECTED PRN PO SEE LABEL COMMENTS 08/08/19 01:00 Home Med (Med Rec Complete!) ASDIRECTED XX 08/08/19 00:15 08/08/19 00:06 DC Insulin Human Lispro (HumaLOG INSULIN) SEE PROTOCOL TABLE Q6H SC 08/08/19 00:00 08/08/19 06:13 Miscellaneous (Unresolved Clarification Entry) SEE LABEL COMMENTS UNRESOLVED XX 08/08/19 00:01 08/08/19 05:06 DC Morphine Sulfate (Morphine Sulfate Inj) 4 mg Q4HP PRN IV PAIN 08/08/19 01:00 Ondansetron HCl (ZOFRAN INJection) 4 mg Q6H PRN IV NAUSEA 08/08/19 01:00 Potassium Chloride (Micro-K Extencaps) 10 meq DAILY PO 08/08/19 09:00 08/08/19 09:22 DC Simvastatin (Zocor) 20 mg DAILY PO 08/08/19 09:00 08/08/19 09:37 Tamsulosin HCl (Flomax) 0.4 mg DAILY PO 08/08/19 09:00 08/08/19 09:37 Allergies Allergies: Coded Allergies: No Known Allergies (Unverified , 08/07/19) Review of Systems General: Denies: Fatigue, Malaise Constitutional: Denies: Fever, Chills, Sweats, Weakness, Malaise Pulmonary: Denies: Dyspnea, Cough Cardiovascular: Denies Chest Pain, Denies Palpitations Gastrointestinal: Reports: Nausea, Abdominal Pain; Denies: Vomiting Genitourinary: Denies: Dysuria, Frequency, Incontinence, Hematuria Musculoskeletal: Reports: Back Pain (b/l) Psych: Reports: Mood Normal Physical Examination General Exam: Alert, Cooperative, No Acute Distress Chest Exam: Normal air movement Heart Exam: Rate Normal Abdomen Exam: Soft, Tenderness (mild b/l LQ) Skin Exam: Nl turgor and temperature Neuro Exam: Normal Speech Psych Exam: Mental status NL, Mood NL Vital Signs/I&O Vital Signs Date Time Temp Pulse Resp B/P (MAP) Pulse Ox O2 Delivery O2 Flow Rate FiO2 08/08/19 09:39 70 159/80 08/08/19 06:00 99.0 18 96 Room Air I&O- Last 24 Hours up to 6 AM 08/08/19 05:59 Intake Total 1000 ml Balance 1000 ml Laboratory Data 24H Labs Laboratory Tests 2 08/07/19 22:46: Immature Granulocyte % (Auto) 0.2, Neutrophils (%) (Auto) 72.8H, Lymphocytes (%) (Auto) 18.5L, Monocytes (%) (Auto) 6.1H, Eosinophils (%) (Auto) 2.2, Basophils (%) (Auto) 0.2, Neutrophils # (Auto) 3.9, Lymphocytes # (Auto) 1.0L, Monocytes # (Auto) 0.3, Eosinophils # (Auto) 0.1, Basophils # (Auto) 0.0, Nucleated Red Blood Cells % (auto) 0.0, Anion Gap 7L, Glomerular Filtration Rate 32.3L, Uric Acid 7.5H, Calcium Level 8.2L, Total Bilirubin 1.0, Direct Bilirubin 0.3H, Aspartate Amino Transf (AST/SGOT) 25, Alanine Aminotransferase (ALT/SGPT) 42, Alkaline Phosphatase 71, Total Protein 7.1, Albumin 3.7, Albumin/Globulin Ratio 1.1, Lipase 370 08/08/19 00:42: Urine Color YELLOW, Urine Appearance CLOUDYH, Urine pH 5.0, Urine Specific [place] 1.017, Urine Protein 1+H, Urine Glucose (UA) NEGATIVE, Urine Ketones NEGATIVE, Urine Blood 3+H, Urine Nitrite NEGATIVE, Urine Bilirubin NEGATIVE, Urine Urobilinogen 0.2, Urine Leukocyte Esterase NEGATIVE, Urine WBC (Auto) 5H, Urine RBC (Auto) TNTCH, Urine Hyaline Casts (Auto) 0, Urine Bacteria (Auto) NEGATIVE, Urine Squamous Epithelial Cells 1, Urine Mucus (Auto) SMALL, Urine Sperm (Auto) 08/08/19 02:13: Coronavirus (COVID-19)(PCR) NEGATIVE 08/08/19 05:50: Bedside Glucose (Misc Panel) 119H 08/08/19 11:51: Bedside Glucose (Misc Panel) 122H CBC/BMP Laboratory Tests 08/07/19 22:46 Assessment This is a 58 y/o M w/ MIKA 2/2 b/l obstructing ureteral stones. I discussed that the stones are small and might pass, but given his MIKA, oliguria, and 3 trips to the ER, I recommended that we take him to the OR today. After a discussion of the risks and benefits of the procedure, informed consent was signed for cysto scopy, b/l ureteroscopy w/ laser lithotripsy, b/l ureteral stent placement. Plan - plan for OR this - informed consent signed - strict I/Os - strain all urine - flomax - 2g ancef OCOR - NPO until surgery GRACE VALDERRAMA MD August 08, 2019 12:47
--- NOTE | 2019-08-08 16:11 | IPNPDOC ---
Date Seen The patient was seen on 08/08/19. Progress Note SUBJECTIVE: Ej is a 58-year-old male with PMHx of NIDDM, htn, hld, and morbid obesity, who presented to the ED on Thursday night (08/06) for the third weekend in a row c/o significant right flank pain and hematuria. CT abdomen and pelvis showed mild bilateral hydronephrosis with bilateral stones and right hydroureter. He was found to have an acute kidney injury (sCr 2.24, BL 1-1.2) wi th mildly elevated uric acid, and mild normocytic anemia. UA showed uRBC too numerous to count. Neurology (Dr. Nielson) was consulted and recommended a NPO diet and OR on 08/07 in the setting of worsening renal function to remove stones and place ureteral stents. On previous ED visits over the past month, he had left flank pain and passed one stone. He was started on Flomax and ketorolac, and was in the process of setting up outpatient urology appointment. Ej was seen and examined this morning by the hospitalist service while lying in bed.. He reports his right flank pain is moderately improved from the overnight. He has had a scant amount of urine this morning that was bloody. He endorses dry mouth with some mild nausea but no vomiting. He denies fever, chills, night sweats, chest pain, chest pressure, or palpitations. OBJECTIVE PHYSICAL EXAMINATION: VITAL SIGNS: Please see below. GENERAL: Pleasant, morbidly obese male lying in bed. Appears stated age. Alert and oriented 3. No acute distress. HEENT: Normocephalic, atraumatic. PERRLA. Anicteric, noninjected sclerae. [place], MMM. No pharyngeal erythema or exudate. No cervical or supraclavicular lymphadenopathy appreciated. CARDIOVASCULAR: Regular rate, regular rhythm. +S1, S2. Systolic murmur heard best over right parasternal second intercostal space. No rubs or gallops appreciated. RESPIRATORY: Clear to auscultation bilaterally with no adventitious breath sounds appreciated. Adequate tidal volume and respiratory effort. Symmetric chest expansion. Breathing room air. Speaking full sentences. ABDOMINAL: Obese, soft, nondistended. Tenderness of left lower quadrant and suprapubic area. EXTREMITIES: 1+ b/l LE pitting edema with no signs of cyanosis or clubbing. 2+ radial and posterior tibial pulses b/l, NEUROLOGICAL: Awake, alert and oriented 3. No focal neurologic deficits appreciated. Non-dysarthric speech. PSYCHOLOGICAL: Mood and affect appear appropriate LABORATORY DATA, IMAGING STUDIES, MICROBIOLOGY: Please see below. DVT prophylaxis ordered: TEDs in preparation for urologic OR procedure today ASSESSMENT AND PLAN: This is a 58yo male w/ h/o recent renal colic, NIDDM, htn, hld, and mo rbid obesity who presented with right flank pain and hematuria and was found to have b/l mild hydronephrosis and nephrolithiasis in the setting of an CHANO. Urology was consulted and pt was to undergo stone removal and b/l ureteral stent placement on 08/07. #Nephrolithiasis with b/l mild hydronephrosis, pain, and hematuria -seen by urology this morning (Dr. Zapata) with plan for afternoon cystoscopy with b/l ureteroscopy, laser lithotripsy, and b/l ureteral stent placement; we appreciate urology's continued recommendations -strict I&O monitoring -c/w flomax -morphine for pain #Acute kidney injury -likely 2/2 to combination of recent ketorolac use, home metformin and ARB, and obstructive uropathy -sCr 2.24 (BL 1-1.2), BUN 32 -continue to hold ketorolac and home ARB medication -D5NS for IVF -avoid nephrotoxic medications #HTN -continue to hold home ARB in setting of chano -home amlodipine was increased from 5mg to 10mg #NIDDM -home metformin held in setting of chano -NPO diet for urology procedure today -c/w SSI q6h, hypoglycemic protocol, and FSBS q6h while NPO #Hyperlipidemia -home simvastatin continued -consider switch to another statin upon d/c as simvastatin has highest statin SE profile and rhabdomyolysis risk #Morbid obesity -BMI 50.6 #DVT prophylaxis: TEDs in prep for OR today DISPOSITION: Pending afternoon urology procedure and improvement in renal functioning Attending attestation: I evaluated and examined the patient in person; I discussed the care with Resident in detail and agree with the plan above. VS, I&O, 24H, Fishbone Vital Signs/I&O Vital Signs Date Time Temp Pulse Resp B/P (MAP) Pulse Ox O2 Delivery O2 Flow Rate FiO2 08/08/19 09:39 70 159/80 08/08/19 06:00 99.0 18 96 Room Air I&O- Last 24 Hours up to 6 AM 08/08/19 06:00 Intake Total 1300 ml Balance 1300 ml Laboratory Data 24H LABS Laboratory Tests 2 08/07/19 22:46: Immature Granulocyte % (Auto) 0.2, Neutrophils (%) (Auto) 72.8H, Lymphocytes (%) (Auto) 18.5L, Monocytes (%) (Auto) 6.1H, Eosinophils (%) (Auto) 2.2, Basophils (%) (Auto) 0.2, Neutrophils # (Auto) 3.9, Lymphocytes # (Auto) 1.0L, Monocytes # (Auto) 0.3, Eosinophils # (Auto) 0.1, Basophils # (Auto) 0.0, Nucleated Red Blood Cells % (auto) 0.0, Anion Gap 7L, Glomerular Filtration Rate 32.3L, Uric Acid 7.5H, Calcium Level 8.2L, Total Bilirubin 1.0, Direct Bilirubin 0.3H, Aspartate Amino Transf (AST/SGOT) 25, Alanine Aminotransferase (ALT/SGPT) 42, Alkaline Phosphatase 71, Total Protein 7.1, Albumin 3.7, Albumin/Globulin Ratio 1.1, Lipase 370 08/08/19 00:42: Urine Color YELLOW, Urine Appearance CLOUDYH, Urine pH 5.0, Urine Specific [place] 1.017, Urine Protein 1+H, Urine Glucose (UA) NEGATIVE, Urine Ketones NEGATIVE, Urine Blood 3+H, Urine Nitrite NEGATIVE, Urine Bilirubin NEGATIVE, Urine Urobilinogen 0.2, Urine Leukocyte Esterase NEGATIVE, Urine WBC (Auto) 5H, Urine RBC (Auto) TNTCH, Urine Hyaline Casts (Auto) 0, Urine Bacteria (Auto) NEGATIVE, Urine Squamous Epithelial Cells 1, Urine Mucus (Auto) SMALL, Urine Sperm (Auto) 08/08/19 02:13: Coronavirus (COVID-19)(PCR) NEGATIVE 08/08/19 05:50: Bedside Glucose (Misc Panel) 119H 08/08/19 11:51: Bedside Glucose (Misc Panel) 122H CBC/BMP Laboratory Tests 08/07/19 22:46 ALECIA LAGOS D.O. August 08, 2019 16:11 ISAÍAS WAGGONER MD August 15, 2019 21:34
[2019-08-08] MEDS ORDERED: ceFAZolin 2 GM/D5W 50 ML IV BAG (J0690 PER 500MG) As Ordered ONE (16:13)
[2019-08-08] MEDS ORDERED: LIDOCAINE 2% 100MG/5ML SDV (FOR ANES.) As Ordered ONE (16:50)
[2019-08-08] MEDS ORDERED: fentaNYL 100 MCG/2 ML INJECTION (J3010) As Ordered ONE (16:50)
[2019-08-08] MEDS ORDERED: MIDAZOLAM INJ 2MG/2ML VIAL (J2250 PER 1MG) As Ordered ONE (16:50)
[2019-08-08] MEDS ORDERED: propofoL 200 MG/20 ML VIAL As Ordered ONE (16:50)
[2019-08-08] MEDS ORDERED: ONDANSETRON 4MG/2ML VIAL As Ordered ONE (16:51)
[2019-08-08] MEDS ORDERED: dexameTHASONE 4 MG/ML 1ML VIAL (J1100 PER 1MG) As Ordered ONE (16:51)
[2019-08-08] MEDS ORDERED: HumaLOG INSULIN (NovoLOG) PER UNIT SC SCH (17:30)
[2019-08-08] MEDS ORDERED: fentaNYL 100 MCG/2 ML INJECTION (J3010) IV PRN (18:15)
[2019-08-08] MEDS ORDERED: oxyCODONE 5MG TAB PO PRN (18:15)
[2019-08-08] MEDS ORDERED: LR 1,000 ML IV SCH (18:15)
[2019-08-08] MEDS: MORPHINE 4 MG/ML 1ML VIAL/SYRINGE (J2270) IV PRN (20:32)
[2019-08-08] MEDS ORDERED: HYDROMORPHONE HCL 0.5 MG/ 0.5 ML SYRINGE (J1170 PER 1) IV ONE (21:45)
[2019-08-08] MEDS ORDERED: oxyBUTYnin 5 MG TAB PO SCH (22:00)
--- NOTE | 2019-08-08 23:09 | REP ---
C-ARM VIEWS ABDOMEN AND PELVIS DURING URETERAL STENT PLACEMENT: Three C-arm views are performed. Contrast partially opacifies both pelvicalyceal systems. Bilateral ureteral stents are placed. Proximal end of each stent is coiled in the respective renal pelvis. The distal ends are coiled in the urinary bladder. 23 seconds fluoroscopy time utilized. Electronically Signed by Caleb Hernández MD 08/09/2019 12:14 P
[2019-08-09] VITALS (7 sets, daily range): BP systolic 128–149; BP diastolic 67–82
[2019-08-09] MEDS: MORPHINE 4 MG/ML 1ML VIAL/SYRINGE (J2270) IV PRN ×2 (01:24→09:10)
[2019-08-09] MEDS: D5W/0.9% SODIUM CHLORIDE 1,000 ML IV SCH (05:59)
[2019-08-09 06:14] LABS: HEMATOCRIT 39.5 % (42.0-52.0); HEMOGLOBIN 13.2 g/dl (13.5-17.5); MEAN CORPUSCULAR HGB CONC 33.4 g/dl (32.0-36.5); MEAN CORPUSCULAR VOLUME 89.8 fl (80.0-96.0); PLATELET COUNT, AUTOMATED 165 10^3/uL (150-450); WHITE BLOOD COUNT 7.6 10^3/uL (4.0-10.0)
[2019-08-09 06:34] LABS: CALCIUM LEVEL 7.6 MG/DL (8.5-10.1); CREATININE FOR GFR 3.16 MG/DL (0.70-1.30); GLOMERULAR FILTRATION RATE 21.7 (>56); POTASSIUM SERUM 4.5 MEQ/L (3.5-5.1)
--- NOTE | 2019-08-09 08:52 | IPNPDOC ---
Subjective Review oF Systems Chief Complaint The patient is a 58-year-old male admitted with a reason for visit of Mika,Bilateral Hydronephrosis & Ureteral Calculi. Events since Last Encounter Patient noted severe L flank pain postop last night. This is much improved now. He has been voiding much more since surgery. The R flank pain is better. No n/v. No f/c/ns. Objective Physical Examination General Exam: Alert, Cooperative, No Acute Distress ABDOMEN EXAM: Soft; No: Tenderness Skin Exam: Nl turgor and temperature Neuro Exam: Normal Speech Psych Exam: Mental status NL, Mood NL Vital Signs/I&O Vital Signs Date Time Temp Pulse Resp B/P (MAP) Pulse Ox O2 Delivery O2 Flow Rate FiO2 08/09/19 06:00 98.2 68 20 148/78 (101) 99 Room Air 08/08/19 18:10 2 I&O- Last 24 Hours up to 6 AM 08/09/19 06:00 Intake Total 4950 ml Output Total 1925 ml Balance 3025 ml Laboratory Data Labs 24H Laboratory Tests 2 08/08/19 11:51: Bedside Glucose (Misc Panel) 122H 08/08/19 17:11: 08/08/19 18:50: Bedside Glucose (Misc Panel) 153H 08/08/19 20:53: Bedside Glucose (Misc Panel) 176H 08/09/19 05:53: Nucleated Red Blood Cells % (auto) 0.0, Anion Gap 6L, Glomerular Filtration Rate 21.7L, Calcium Level 7.6L CBC/BMP Laboratory Tests 08/09/19 05:53 FSBS Laboratory Tests Test 08/08/19 11:51 08/08/19 18:50 08/08/19 20:53 Range/Units Bedside Glucose (Misc Panel) 122 153 176 70-105 MG/DL Assessment/Plan Date Seen The patient was seen on 08/09/19. Patient Summary This is a 58 y/o M admitted w/ MIKA 2/2 b/l obstructing ureteral stones, POD1 s/p cysto, b/l ureteroscopy w/ basket extraction, and b/l ureteral stent placement. His L ureteral stone had already passed by the time of surgery, but he had sign ificant edema at the ureterovesical junction still causing obstruction. The R ureteral stone was still there and removed. His Cr is 3.2 this morning. I expect for this to improve. His UOP is much better. Plan/VTE VTE Prophylaxis Ordered?: Yes VTE Exclusion Mechanical Proph: N/A:VTE Prophy Ordered Plan - monitor UOP - avoid nephrotoxins - when patient's Cr starts to trend down, ok for discharge from urologic stand point - will arrange outpatient f/u for stent removal in a few wks GRACE VALDERRAMA MD August 09, 2019 08:52
[2019-08-09] MEDS: SIMVASTATIN 20 MG TAB PO SCH (09:09)
[2019-08-09] MEDS: HumaLOG INSULIN (NovoLOG) PER UNIT SC SCH ×4 (09:09→21:15)
[2019-08-09] MEDS: oxyBUTYnin 5 MG TAB PO PRN (09:09)
[2019-08-09] MEDS: amLODIPine 10 MG TAB PO SCH (09:10)
[2019-08-09] MEDS ORDERED: OXYC1TAB23 PO (09:14)
[2019-08-09] MEDS ORDERED: OXYB5TAB10 PO (09:14)
[2019-08-09] MEDS: LR 1,000 ML IV SCH ×2 (11:06→23:33)
[2019-08-09] MEDS: ACETAMINOPHEN TAB 650MG DOSE (2X325MG) PO PRN ×3 (11:13→21:15)
--- NOTE | 2019-08-09 15:50 | IPNPDOC ---
Date Seen The patient was seen on 08/09/19. Progress Note SUBJECTIVE: 58-year-old male with past medical history of diabetes mellitus, hypertension, hyperlipidemia, recurrent renal calculi, and morbid obesity was admitted for bilateral obstructing renal calculi with mild bilateral hydronephrosis. Patient underwent bilateral stent placement by urology y esterday. Patient is seen in the morning, comfortable in bed, pain is well controlled, no other complaints. He does report pain/burning with urination. He denies any shortness of breath, chest pain, nausea, vomiting, diarrhea or constipation. 10 point review of system is negative except for above PHYSICAL EXAMINATION: VITAL SIGNS: Please see below. GENERAL: No distress, morbidly obese HEENT: Normocephalic, atraumatic, moist mucous membranes NECK: Supple CARDIOVASCULAR EXAMINATION: S1, S2, no murmurs RESPIRATORY EXAMINATION: Poor air movement, diminished in the bases, scattered rhonchi, no wheezing ABDOMINAL EXAMINATION: Soft, nontender, nondistended, positive bowel sounds EXTREMITIES: Range of motion intact SKIN: No rash NEUROLOGICAL EXAMINATION: Alert and oriented 3, no focal deficits PSYCHIATRIC EXAMINATION: Calm and cooperative LABORATORY DATA, IMAGING STUDIES, MICROBIOLOGY: Please see below. ASSESSMENT AND PLAN: 58-year-old male with past medical history of diabetes, hypertension, hyperlipidemia and recurrent renal calculi was admitted for bilateral renal calculi with bilateral hydronephrosis and acute kidney injury. PROBLEMS: 1. Bilateral renal calculi: Causing bilateral hydronephrosis, acute kidney injury, status post bilateral stent placement by urology yesterday, pain control, continue Ditropan. 2. Acute kidney injury: Secondary to above, continue IV hydration, will monitor. 3. Diabetes mellitus: Continue sliding scale insulin coverage with meals and at bedtime. 4. Hypertension: Continue Norvasc 5. Hyperlipidemia: Continue simvastatin DVT prophylaxis: Heparin subcutaneous GI prophylaxis: Not needed VS, I&O, 24H, Fishbone Vital Signs/I&O Vital Signs Date Time Temp Pulse Resp B/P (MAP) Pulse Ox O2 Delivery O2 Flow Rate FiO2 08/09/19 14:00 98.6 61 20 138/67 (90) 98 Room Air 08/08/19 18:10 2 I&O- Last 24 Hours up to 6 AM 08/09/19 05:59 Intake Total 4350 ml Output Total 1275 ml Balance 3075 ml Laboratory Data 24H LABS Laboratory Tests 2 08/08/19 17:11: 08/08/19 18:50: Bedside Glucose (Misc Panel) 153H 08/08/19 20:53: Bedside Glucose (Misc Panel) 176H 08/09/19 05:53: Nucleated Red Blood Cells % (auto) 0.0, Anion Gap 6L, Glomerular Filtration Rate 21.7L, Calcium Level 7.6L 08/09/19 11:31: Bedside Glucose (Misc Panel) 124H CBC/BMP Laboratory Tests 08/09/19 05:53 ISAÍAS WAGGONER MD August 09, 2019 15:50
[2019-08-10 02:00] VITALS: BP 164/85
[2019-08-10 06:00] VITALS: BP 160/83
[2019-08-10 06:21] LABS: HEMATOCRIT 38.7 % (42.0-52.0); HEMOGLOBIN 12.6 g/dl (13.5-17.5); MEAN CORPUSCULAR HEMOGLOBIN 29.1 pg (27.0-33.0); MEAN CORPUSCULAR HGB CONC 32.6 g/dl (32.0-36.5); MEAN CORPUSCULAR VOLUME 89.4 fl (80.0-96.0); PLATELET COUNT, AUTOMATED 187 10^3/uL (150-450); RED BLOOD COUNT 4.33 10^6/uL (4.30-6.10); WHITE BLOOD COUNT 7.1 10^3/uL (4.0-10.0)
[2019-08-10 06:43] LABS: CALCIUM LEVEL 8.5 MG/DL (8.5-10.1); CREATININE FOR GFR 1.61 MG/DL (0.70-1.30); GLOMERULAR FILTRATION RATE 47.3 (>56); PHOSPHORUS LEVEL 3.2 MG/DL (2.5-4.9); POTASSIUM SERUM 4.2 MEQ/L (3.5-5.1)
--- NOTE | 2019-08-10 08:15 | RO ---
DATE OF PROCEDURE: 08/08/2019 PREPROCEDURE DIAGNOSIS: Bilateral obstructing ureteral stones. POSTPROCEDURE DIAGNOSIS: Bilateral obstructing ureteral stones. PROCEDURE: Cystoscopy, bilateral ureteroscopy with basket extraction of tones, bilateral retrograde pyelograms with intraoperative images, bilateral ureteral stent placement. SURGEON: Dr. Tony Nielson. ORACLE PROGRAMMER: None. ANESTHESIA: General. OPERATIVE INDICATIONS: This is a 58-year-old male who was found to have bilateral obstructing ureteral stones on recent CT scan. He was brought to the operating room today for the above listed procedure. DESCRIPTION OF PROCEDURE: The patient was brought to the operating room and general anesthesia induced. Prophylactic antibiotics were infused. He was then placed in the dorsal lithotomy position and prepped and draped in the usual sterile fashion. A rigid cystoscope was inserted into the ureteral meatus and advanced into the bladder. A guidewire was advanced up the left collecting system. I then went up the left collecting system with a short semirigid ureteroscope and of note, There was no stone seen in the distal to mid ureter. Of note on the CT scan, there was a 3-4 mm stone at the level of the ureterovesical junction. This indicated the left-sided ureteral stone had passed. A retrograde pyelogram was then performed and was notable for moderate left hydronephrosis with no extravasation. I then utilized a previously placed wire to advance a 6-Sammarinese x 22-32 cm JJ ureteral stent into the left collecting system. The wire was removed and there was adequate curl of the stent in both the left renal pelvis and in the bladder. I advanced a guidewire up the right collecting system. I then went up the right collecting system with a short semirigid ureteroscope and on stone was seen in the distal ureter. I could narrowly get up into the mid ureter with a short semirigid ureteroscope and therefore, I changed it out for a flexible ureteroscope. Within the mid to proximal ureter, an approximately 3-4 mm size stone was seen and the basket was used to remove the stone. A retrograde pyelogram was then performed notable for moderate right hydronephrosis with no extravasation. I then withdrew the ureteroscope and no additional stones were seen. I then utilized the wire to advance a 6-Sammarinese by 22-32 cm JJ ureteral stent into the right collecting system. The wire was removed and there were adequate curls of the stent in the right renal pelvis and in the bladder. The bladder was emptied of all fluids and this marked the conclusion of the procedure. The patient was then taken out of the dorsal lithotomy position, awakened from anesthesia, and transferred to the recovery room in stable condition. ESTIMATED BLOOD LOSS: 10 mL. COMPLICATIONS: None. SPECIMENS: Kidney stone. PLAN: The patient will be monitored for improvement in his kidney function now that the stone are gone and stents in place. As soon as his kidney function improves, he should be okay to discharge home and we will have him followup in the clinic in a week or two for stent removal. CLIFFORD
[2019-08-10] MEDS: SIMVASTATIN 20 MG TAB PO SCH (08:24)
[2019-08-10 08:25] VITALS: BP 160/83
[2019-08-10] MEDS: amLODIPine 10 MG TAB PO SCH (08:25)
[2019-08-10] MEDS: HumaLOG INSULIN (NovoLOG) PER UNIT SC SCH ×2 (08:25→12:09)
[2019-08-10] MEDS: oxyBUTYnin 5 MG TAB PO PRN (08:26)
[2019-08-10] MEDS: LR 1,000 ML IV SCH (12:00)
--- NOTE | 2019-08-10 18:00 | DS.PDOC ---
Discharge Summary General Date of Admission August 08, 2019 at 00:56 Date of Discharge 08/10/2019 Attending Physician: ISAÍAS WAGGONER MD Discharge Summary PROCEDURES PERFORMED DURING STAY: None. ADMITTING DIAGNOSES: 1. Bilateral hydronephrosis, bilateral ureteral calculi, acute kidney injury. DISCHARGE DIAGNOSES: 1. Bilateral hydronephrosis, bilateral ureteral calculi, acute kidney injury. COMPLICATIONS/CHIEF COMPLAINT: Mika,Bilateral Hydronephrosis & Ureteral Calculi. HISTORY OF PRESENT ILLNESS: 58-year-old male with past medical history of diabetes, hypertension, hyperlipidemia and recurrent renal calculi was admitted for bilateral hydronephrosis secondary to bilateral ureteral calculi and acute kidney injury. Patient underwent bilateral stent placement by urology, renal function has improved significantly since then. Patient is hemodynamically stable, pain is well controlled, no other complaints today. Patient is advised to follow-up with urology and nephrology after discharge to monitor renal function and workup for recurrent calculi. Patient is agreeable with this plan, will be discharged later today. HOSPITAL COURSE: As above. DISCHARGE MEDICATIONS: Please see below. ALLERGIES: Please see below. PHYSICAL EXAMINATION: VITAL SIGNS: Please see below. GENERAL: Morbidly obese HEENT: Normocephalic, atraumatic, moist mucous membranes NECK: Supple CARDIOVASCULAR EXAMINATION: S1, S2, no murmurs RESPIRATORY EXAMINATION: Diminished in the bases, poor air movement, no wheezing ABDOMINAL EXAMINATION: Soft, nontender, nondistended, positive bowel sounds EXTREMITIES: Range of motion intact SKIN: No rash NEUROLOGICAL EXAMINATION: Alert and oriented 3, no focal deficits PSYCHIATRIC EXAMINATION: Calm and cooperative LABORATORY DATA: Please see below. IMAGING: CT abdomen, pelvis showing bilateral ureteral calculi causing bilateral hydronephrosis PROGNOSIS: Fair ACTIVITY: As tolerated. DIET: Cardiac with consistent carbs DISCHARGE PLAN: Follow with PCP, urologist and auto damage appraiser in 1-2 weeks DISPOSITION: 01 Home, Self-Care. DISCHARGE INSTRUCTIONS: 1. As above. ITEMS TO FOLLOWUP ON ON OUTPATIENT: 1. BMP in 3-5 days. DISCHARGE CONDITION: Stable. TIME SPENT ON DISCHARGE: Greater than 33 minutes. Vital Signs/I&Os Vital Signs Date Time Temp Pulse Resp B/P (MAP) Pulse Ox O2 Delivery O2 Flow Rate FiO2 08/10/19 08:25 65 160/83 08/10/19 06:00 98.9 18 95 Room Air 08/08/19 18:10 2 I&O- Last 24 Hours up to 6 AM 08/10/19 06:00 Intake Total 4560 ml Output Total 2875 ml Balance 1685 ml Laboratory Data Labs 24H Laboratory Tests 2 08/09/19 20:41: Bedside Glucose (Misc Panel) 185H 08/10/19 05:37: Bedside Glucose (Misc Panel) 110H 08/10/19 05:54: Nucleated Red Blood Cells % (auto) 0.0, Anion Gap 8, Glomerular Filtration Rate 47.3L, Calcium Level 8.5, Phosphorus Level 3.2, Magnesium Level 2.0 08/10/19 11:18: Bedside Glucose (Misc Panel) 113H CBC/BMP Laboratory Tests 08/10/19 05:54 FSBS Laboratory Tests Test 08/09/19 20:41 08/10/19 05:37 08/10/19 11:18 Range/Units Bedside Glucose (Misc Panel) 185 110 113 70-105 MG/DL Discharge Medications Scheduled Amlodipine Besylate (Amlodipine Besylate) 5 Mg Tablet, 5 MG PO DAILY, (Reported) Dulaglutide (Trulicity) 1.5 Mg/0.5 Ml Pen.injctr, 1.5 MG SC 1XWK, (Reported) THURSDAY Simvastatin (Simvastatin) 20 Mg Tablet, 20 MG PO DAILY, (Reported) Scheduled PRN Ondansetron (Ondansetron Odt) 4 Mg Tab.rapdis, 4 MG PO Q6-8HP PRN for nausea/vomiting, (Reported) Oxybutynin Chloride (Oxybutynin Chloride) 5 Mg Tablet, 5 MG PO Q8HP PRN for BLADDER SPASM Oxycodone HCl/Acetaminophen (Oxycodone-Acetaminophen 5-325) 1 Each Tablet, 1 TAB PO Q6HP PRN for pain Allergies Coded Allergies: No Known Allergies (Unverified , 08/07/19) ISAÍAS WAGGONER MD August 10, 2019 18:00
== END 2019-08-10 13:51 | disposition home or self-care (01) | DRG 446 ==
LOC: M ED 21:52 → M ED INP 08-08 00:56 → ENRESERV 08-08 01:29 → M MSPAV 08-08 03:22
PROVIDERS: ADMIT Internal Medicine; ATTEND Internal Medicine
PROC: 0T788DZ Dilation of Bilateral Ureters with Intraluminal Device, Via Natural or Artificial Opening Endoscopic (ICD-10-PCS; 2019-08-08)
PROC: 0TC68ZZ Extirpation of Matter from Right Ureter, Via Natural or Artificial Opening Endoscopic (ICD-10-PCS; principal; 2019-08-08 16:30)
DX: N13.2 Hydronephrosis with renal and ureteral calculous obstruction (principal); N17.9 Acute kidney failure, unspecified; E66.01 Morbid (severe) obesity due to excess calories; E78.5 Hyperlipidemia, unspecified; Z68.43 Body mass index [BMI] 50.0-59.9, adult; E11.9 Type 2 diabetes mellitus without complications; I10 Essential (primary) hypertension; Z79.84 Long term (current) use of oral hypoglycemic drugs; Z79.899 Other long term (current) drug therapy

== ENCOUNTER → 2019-08-25 | Outpatient (CLI) | payer BC ==
[~2019-08-25] MED LIST changes: +AMLO5TAB6 PO; +LOSA100T50 PO; +OXYB5TAB10 PO; +OXYC1TAB23 PO
[2019-08-25 13:51] LABS: IONIZED CALCIUM 4.8 MG/DL (4.5-5.3)
[2019-08-25 14:12] LABS: BLOOD UREA NITROGEN 20 MG/DL (7-18); CALCIUM LEVEL 9.7 MG/DL (8.5-10.1); CARBON DIOXIDE LEVEL 30 MEQ/L (21-32); CHLORIDE LEVEL 104 MEQ/L (98-107); GLOMERULAR FILTRATION RATE > 60.0 (>56); GLUCOSE, FASTING 106 MG/DL (70-100); POTASSIUM SERUM 4.3 MEQ/L (3.5-5.1); SODIUM LEVEL 140 MEQ/L (136-145)
[2019-08-25 14:15] LABS: PTH INTACT 48.5 PG/ML (18.5-88.0)
== END ==
LOC: M PLALAB 11:39
PROVIDERS: ATTEND Physician Assistant
DX: N23 Unspecified renal colic (principal)

== ENCOUNTER → 2019-09-25 | Outpatient (CLI) | payer BC, OTHER ==
[~2019-09-25] MED LIST changes: +ASPI81TA85 PO; +K-TA10TA2 PO
== END ==
LOC: M LABSMTC 09:51
PROVIDERS: ATTEND Anesthesiology
DX: Z03.818 Encounter for observation for suspected exposure to other biological agents ruled out (principal); Z11.59 Encounter for screening for other viral diseases
CPT/HCPCS: C9803; U0003

== ENCOUNTER 2019-09-28 08:51 | Day surgery (SDC) | payer BC ==
[~2019-09-28] VITALS: Ht 175.3 cm; Wt 141.1 kg
[~2019-09-28 08:51] MED LIST changes: +AMLO1TAB24 PO; -AMLO5TAB6 PO; -ASPI81TA85 PO; +ASPI81TA86 PO; +NS 1,000 ML IV ONE
[2019-09-28] MEDS ORDERED: LIDOCAINE 2% 100MG/5ML SDV (FOR ANES.) As Ordered ONE (10:11)
[2019-09-28] MEDS ORDERED: propofoL 500 MG/50 ML VIAL As Ordered ONE (10:11)
--- NOTE | 2019-09-28 10:30 | ROOR ---
Patient Name: Kasi Valencia Procedure Date: 09/28/2019 10:03 AM Date of : 1960 Age: 59 Room: [facility] Gender: Male Note Status: Finalized Procedure: Total Colonoscopy to Cecum Indications: High risk colon cancer surveillance: Personal history of colonic polyps, Last colonoscopy: 2014 Providers: Jayce Gold MD Referring MD: Suzi COMBS DO Requesting Provider: Medicines: Monitored Anesthesia Care Complications: No immediate complications. Procedure: Pre-Anesthesia Assessment: - The heart rate, respiratory rate, oxygen saturations, blood pressure, adequacy of pulmonary ventilation, and response to care were monitored throughout the procedure. The Colonoscope was introduced through the anus and advanced to the cecum, identified by appendiceal orifice and ileocecal valve. The colonoscopy was performed without difficulty. The patient tolerated the procedure well. The quality of the bowel preparation was excellent. Findings: The perianal and digital rectal examinations were normal. Non-bleeding internal hemorrhoids were found during retroflexion. The hemorrhoids were small and Grade I (internal hemorrhoids that do not prolapse). No other significant abnormalities were identified in a careful examination of the remainder of the colon. The exam was otherwise without abnormality on direct and retroflexion views. Impression: - Non-bleeding internal hemorrhoids. - The examination was otherwise normal on direct and retroflexion views. - No specimens collected. - The exam was otherwise normal to the cecum. Recommendation: - Patient has a contact number available for emergencies. The signs and symptoms of potential delayed complications were discussed with the patient. Return to normal activities tomorrow. Written discharge instructions were provided to the patient. - High fiber diet. - Discharge patient to home. - Continue present medications. - Repeat colonoscopy in 5 years for surveillance. - Return to referring physician. - The findings and recommendations were discussed with the patient. Jayce Gold MD Jayce Gold MD 09/28/2019 10:29:36 AM Electronically signed by Jayce Gold MD Number of Addenda: 0 Note Initiated On: 09/28/2019 10:03 AM Estimated Blood Loss: Estimated blood loss: none.
[2019-09-28 10:50] VITALS: BP 140/88
== END 2019-09-28 10:57 | disposition home or self-care (01) ==
LOC: M OPP 08:51
PROVIDERS: ATTEND Internal Medicine Gastroenterology
DX: Z12.11 Encounter for screening for malignant neoplasm of colon (principal); Z86.010 Personal history of colon polyps; K64.0 First degree hemorrhoids; E11.9 Type 2 diabetes mellitus without complications; I10 Essential (primary) hypertension; Z79.82 Long term (current) use of aspirin; Z79.84 Long term (current) use of oral hypoglycemic drugs; Z79.899 Other long term (current) drug therapy

== ENCOUNTER 2019-11-04 00:30 | Emergency (ER) | payer BC ==
[~2019-11-04 00:30] MED LIST changes: -NS 1,000 ML IV ONE
[2019-11-04] MEDS ORDERED: NITROGLYCERIN 0.4 MG SUBL TABLET ONE (01:21)
[2019-11-04] MEDS ORDERED: ASPIRIN 325 MG TAB As Ordered ONE (01:21)
[2019-11-04] MEDS ORDERED: NITROGLYCERIN 0.4 MG SUBL TABLET As Ordered ONE (01:21)
[2019-11-04] MEDS ORDERED: ASPIRIN 325 MG TAB ONE (01:21)
[2019-11-04] MEDS ORDERED: ISOVUE-370 76% 100ML VIAL As Ordered ONE (02:43)
--- NOTE | 2019-12-07 14:03 | ECGEPIP ---
SINUS RHYTHM WITH FIRST DEGREE AV BLOCK MARKED LEFT AXIS DEVIATION MODERATE INTRAVENTRICULAR CONDUCTION DELAY ABNORMAL ECG SEE SCANNED DOWNTIME REPORT MTDD
--- NOTE | 2019-12-07 14:04 | ECGEPIP ---
SINUS RHYTHM INFERIOR MYOCARDIAL INFARCTION, PROBABLY OLD ABNORMAL ECG PRWP SEE SCANNED DOWNTIME REPORT MTDD
[2019-12-19 10:32] LABS: BASO % 0.1 % (0.0-1.0); EOS # 0.1 10^3/uL (0.0-0.5); EOS % 1.6 % (0.0-3.0); HEMATOCRIT 39.8 % (42.0-52.0); HEMOGLOBIN 12.9 g/dl (13.5-17.5); LYMPH # 1.3 10^3/uL (1.5-5.0); MEAN CORPUSCULAR HEMOGLOBIN 29.4 pg (27.0-33.0); MEAN CORPUSCULAR HGB CONC 32.4 g/dl (32.0-36.5); MEAN CORPUSCULAR VOLUME 90.7 fl (80.0-96.0); MONO # 0.5 10^3/uL (0.0-0.8); MONO % 7.3 % (0.0-5.0); NEUTROPHILS % 71.7 % (36.0-66.0); PLATELET COUNT, AUTOMATED 172 10^3/uL (150-450); RED BLOOD COUNT 4.39 10^6/uL (4.30-6.10)
[2019-12-19 11:31] LABS: INR 0.98; PARTIAL THROMBOPLASTIN TIME 31.1 SECONDS (24.2-38.5); PROTHROMBIN TIME 13.2 SECONDS (12.5-14.3)
== END 2019-11-04 04:25 | disposition home or self-care (01) ==
LOC: M ED 00:30
DX: R07.9 Chest pain, unspecified (principal); R06.02 Shortness of breath; E11.9 Type 2 diabetes mellitus without complications; I10 Essential (primary) hypertension; I45.4 Nonspecific intraventricular block
CPT/HCPCS: 71046; 71275; 80048; 80076; 82550; 82553; 83690; 84439; 84443; 84484; 85025; 85610; 85730; 93005; 99284; Q9967

== ENCOUNTER → 2019-11-22 | Outpatient (CLI) | payer BC ==
[2019-11-22 13:38] LABS: BLOOD UREA NITROGEN 25 MG/DL (7-18); CALCIUM LEVEL 9.1 MG/DL (8.5-10.1); CARBON DIOXIDE LEVEL 32 MEQ/L (21-32); CHLORIDE LEVEL 102 MEQ/L (98-107); CREATININE FOR GFR 1.22 MG/DL (0.70-1.30); GLOMERULAR FILTRATION RATE > 60.0 (>56); GLUCOSE, FASTING 129 MG/DL (70-100); POTASSIUM SERUM 3.9 MEQ/L (3.5-5.1); SODIUM LEVEL 140 MEQ/L (136-145)
== END ==
LOC: M PLALAB 09:04
PROVIDERS: ATTEND Physician Assistant
DX: E11.9 Type 2 diabetes mellitus without complications (principal); I11.9 Hypertensive heart disease without heart failure

== ENCOUNTER → 2020-07-06 | Outpatient (CLI) | payer BC ==
[2020-07-06 11:56] LABS: BASO % 0.3 % (0.0-1.0); EOS # 0.2 10^3/uL (0.0-0.5); EOS % 2.5 % (0.0-3.0); HEMATOCRIT 41.1 % (42.0-52.0); HEMOGLOBIN 13.4 g/dl (13.5-17.5); LYMPH # 1.5 10^3/uL (1.5-5.0); LYMPH % 24.6 % (24.0-44.0); MEAN CORPUSCULAR HEMOGLOBIN 29.5 pg (27.0-33.0); MEAN CORPUSCULAR HGB CONC 32.6 g/dl (32.0-36.5); MEAN CORPUSCULAR VOLUME 90.3 fl (80.0-96.0); MONO # 0.3 10^3/uL (0.0-0.8); MONO % 5.1 % (2.0-8.0); PLATELET COUNT, AUTOMATED 181 10^3/uL (150-450); RED BLOOD COUNT 4.55 10^6/uL (4.30-6.10); WHITE BLOOD COUNT 5.9 10^3/uL (4.0-10.0)
[2020-07-06 13:00] LABS: ALBUMIN 3.7 GM/DL (3.2-5.2); ALT/SGPT 65 U/L (12-78); BILIRUBIN,TOTAL 0.8 MG/DL (0.2-1.0); BLOOD UREA NITROGEN 20 MG/DL (7-18); CALCIUM LEVEL 8.9 MG/DL (8.5-10.1); CARBON DIOXIDE LEVEL 30 MEQ/L (21-32); CHLORIDE LEVEL 100 MEQ/L (98-107); CHOLESTEROL LEVEL 130 MG/DL (<200); CHOLESTEROL RISK RATIO 2.954 (<5); FREE T4 1.24 NG/DL (0.76-1.46); GLOMERULAR FILTRATION RATE > 60.0 (>56); GLUCOSE, FASTING 227 MG/DL (70-100); HDL CHOLESTEROL 44 MG/DL (>40); LDL CHOLESTEROL 67 MG/DL (<100); NON-HDL-C 86 MG/DL; POTASSIUM SERUM 3.6 MEQ/L (3.5-5.1); SODIUM LEVEL 138 MEQ/L (136-145); TOTAL PROTEIN 6.9 GM/DL (6.4-8.2); TRIGLYCERIDES LEVEL 97 MG/DL (<150)
[2020-07-06 13:26] LABS: HEMOGLOBIN A1c 8.4 %
== END ==
LOC: M PLALAB 09:22
PROVIDERS: ATTEND Physician Assistant
DX: E11.9 Type 2 diabetes mellitus without complications (principal); I10 Essential (primary) hypertension; E78.2 Mixed hyperlipidemia

== ENCOUNTER → 2020-10-09 | Outpatient (CLI) | payer BC ==
--- NOTE | 2020-10-09 13:45 | REP ---
INDICATION: PAIN JOSEPH LEGS COMPARISON: None. TECHNIQUE: Real time hernández scale and Duplex Doppler evaluation of the bilateral lower extremity arterial vasculature using linear high frequency transducer. FINDINGS: Hernández scale and duplex doppler images demonstrate ALVIN bilaterally 1.07. The bilateral lower extremity arterial structures demonstrate diffuse biphasic and triphasic waveforms. Monophasic waveform is seen in the left profunda. Minor scattered diffuse plaquing is noted. There is no compelling duplex Doppler sonographic evidence of hemodynamically significant stenosis bilaterally. Peak systolic velocities (cm/sec) Common femoral artery: Right 120; Left 120 Profunda femoris: Right 95; Left 91 SFA (proximal): Right 104; Left 118 SFA (mid): Right 133; Left 130 SFA (distal): Right 140; Left 114 Popliteal artery: Right 76; Left 87 KATHLEEN (prox.): Right 130; Left 131 Tibioperoneal trunk: Right 77; Left 74 RENAL SOCIAL WORKER (prox.): Right 77; Left 52 RENAL SOCIAL WORKER (distal): Right 67; Left 57 KATHLEEN (distal): Right 104; Left 97 IMPRESSION: Very mild scattered diffuse plaquing bilaterally without evidence of hemodynamically significant stenosis. <Electronically signed by Caleb Hernández > 10/09/20 [id number]
== END ==
LOC: M RAD 11:21
PROVIDERS: ATTEND Physician Assistant
DX: M79.604 Pain in right leg (principal); M79.662 Pain in left lower leg

== ENCOUNTER → 2020-12-21 | Outpatient (CLI) | payer BC ==
[2020-12-21 11:01] LABS: BASO % 0.3 % (0.0-1.0); EOS # 0.2 10^3/uL (0.0-0.5); EOS % 2.6 % (0.0-3.0); HEMATOCRIT 43.9 % (42.0-52.0); HEMOGLOBIN 14.7 g/dl (13.5-17.5); LYMPH # 1.4 10^3/uL (1.5-5.0); LYMPH % 22.9 % (24.0-44.0); MEAN CORPUSCULAR HEMOGLOBIN 29.9 pg (27.0-33.0); MEAN CORPUSCULAR HGB CONC 33.5 g/dl (32.0-36.5); MEAN CORPUSCULAR VOLUME 89.4 fl (80.0-96.0); MONO # 0.4 10^3/uL (0.0-0.8); MONO % 5.9 % (2.0-8.0); NEUTROPHILS # 4.2 10^3/uL (1.5-8.5); PLATELET COUNT, AUTOMATED 203 10^3/uL (150-450); RED BLOOD COUNT 4.91 10^6/uL (4.30-6.10); WHITE BLOOD COUNT 6.1 10^3/uL (4.0-10.0)
[2020-12-21 11:32] LABS: CREATININE FOR GFR 1.32 MG/DL (0.70-1.30); GLOMERULAR FILTRATION RATE 59.1 (>56); POTASSIUM SERUM 3.4 MEQ/L (3.5-5.1)
[2020-12-21 11:33] LABS: ALBUMIN 3.7 GM/DL (3.2-5.2); BILIRUBIN,TOTAL 0.9 MG/DL (0.2-1.0); CALCIUM LEVEL 8.7 MG/DL (8.5-10.1); CHOLESTEROL RISK RATIO 2.85 (<5); TOTAL PROTEIN 7.3 GM/DL (6.4-8.2)
== END ==
LOC: M PLALAB 08:55
PROVIDERS: ATTEND Family Medicine
DX: E11.65 Type 2 diabetes mellitus with hyperglycemia (principal)

== ENCOUNTER → 2021-04-08 | Outpatient (CLI) | payer BC ==
[~2021-04-08] MED LIST changes: +LOSA100T45 PO; -LOSA100T50 PO
[2021-04-08 10:56] LABS: BASO % 0.4 % (0.0-1.0); EOS # 0.1 10^3/uL (0.0-0.5); EOS % 1.6 % (0.0-3.0); HEMATOCRIT 46.9 % (42.0-52.0); HEMOGLOBIN 15.6 g/dl (13.5-17.5); LYMPH # 1.7 10^3/uL (1.5-5.0); LYMPH % 22.9 % (24.0-44.0); MEAN CORPUSCULAR HEMOGLOBIN 29.1 pg (27.0-33.0); MEAN CORPUSCULAR HGB CONC 33.3 g/dl (32.0-36.5); MEAN CORPUSCULAR VOLUME 87.5 fl (80.0-96.0); MONO # 0.4 10^3/uL (0.0-0.8); MONO % 5.8 % (2.0-8.0); NEUTROPHILS # 5.2 10^3/uL (1.5-8.5); NEUTROPHILS % 68.8 % (36.0-66.0); PLATELET COUNT, AUTOMATED 226 10^3/uL (150-450); RED BLOOD COUNT 5.36 10^6/uL (4.30-6.10); WHITE BLOOD COUNT 7.6 10^3/uL (4.0-10.0)
[2021-04-08 11:31] LABS: ALBUMIN 3.9 GM/DL (3.2-5.2); ALT/SGPT 68 U/L (12-78); BILIRUBIN,TOTAL 0.6 MG/DL (0.2-1.0); BLOOD UREA NITROGEN 28 MG/DL (7-18); CALCIUM LEVEL 8.8 MG/DL (8.5-10.1); CARBON DIOXIDE LEVEL 31 MEQ/L (21-32); CHLORIDE LEVEL 100 MEQ/L (98-107); CHOLESTEROL LEVEL 137 MG/DL (<200); CHOLESTEROL RISK RATIO 3.261 (<5); CREATININE FOR GFR 1.22 MG/DL (0.70-1.30); GLOMERULAR FILTRATION RATE > 60.0 (>56); GLUCOSE, FASTING 173 MG/DL (70-100); HDL CHOLESTEROL 42 MG/DL (>40); LDL CHOLESTEROL 75 MG/DL (<100); NON-HDL-C 95 MG/DL; POTASSIUM SERUM 3.5 MEQ/L (3.5-5.1); SODIUM LEVEL 138 MEQ/L (136-145); TOTAL PROTEIN 7.7 GM/DL (6.4-8.2); TRIGLYCERIDES LEVEL 98 MG/DL (<150)
[2021-04-08 11:35] LABS: MALB URINE SIEMENS 48.3 MG/L; MAU/CREAT RATIO 43.9 MCG/MG (0.0-30.0)
[2021-04-09 13:01] LABS: HEMOGLOBIN A1c 7.6 %
== END ==
LOC: M PLALAB 08:10
PROVIDERS: ATTEND Family Medicine
DX: E78.2 Mixed hyperlipidemia (principal); E11.65 Type 2 diabetes mellitus with hyperglycemia; I10 Essential (primary) hypertension; Z12.5 Encounter for screening for malignant neoplasm of prostate

== ENCOUNTER → 2021-07-19 | Outpatient (CLI) | payer BC | LOC: M PLAIMG 10:40 | PROVIDERS: ATTEND Family Medicine | DX: R05.2 Subacute cough (principal) ==

== ENCOUNTER → 2021-10-03 | Outpatient (CLI) | payer BC ==
[2021-10-03 10:47] LABS: BASO % 0.5 % (0.0-1.0); EOS # 0.1 10^3/uL (0.0-0.5); EOS % 1.8 % (0.0-3.0); HEMATOCRIT 44.2 % (42.0-52.0); LYMPH # 1.4 10^3/uL (1.5-5.0); LYMPH % 21.8 % (24.0-44.0); MEAN CORPUSCULAR HEMOGLOBIN 29.7 pg (27.0-33.0); MEAN CORPUSCULAR HGB CONC 33.9 g/dl (32.0-36.5); MEAN CORPUSCULAR VOLUME 87.5 fl (80.0-96.0); MONO # 0.4 10^3/uL (0.0-0.8); MONO % 6.1 % (2.0-8.0); NEUTROPHILS # 4.5 10^3/uL (1.5-8.5); NEUTROPHILS % 69.3 % (36.0-66.0); PLATELET COUNT, AUTOMATED 186 10^3/uL (150-450); RED BLOOD COUNT 5.05 10^6/uL (4.30-6.10); WHITE BLOOD COUNT 6.5 10^3/uL (4.0-10.0)
[2021-10-03 11:03] LABS: ALBUMIN 3.9 GM/DL (3.2-5.2); BILIRUBIN,TOTAL 0.8 MG/DL (0.2-1.0); CALCIUM LEVEL 9.3 MG/DL (8.8-10.2); CHOLESTEROL RISK RATIO 3.121 (<5); CREATININE FOR GFR 1.34 MG/DL (0.70-1.30); GLOMERULAR FILTRATION RATE 57.9 (>49); POTASSIUM SERUM 3.7 MEQ/L (3.5-5.1); TOTAL PROTEIN 7.3 GM/DL (6.4-8.2)
[2021-10-03 11:43] LABS: HEMOGLOBIN A1c 7.8 %
== END ==
LOC: M PLALAB 08:14
PROVIDERS: ATTEND Family Medicine
DX: E78.2 Mixed hyperlipidemia (principal)

== ENCOUNTER → 2022-01-06 | Outpatient (CLI) | payer BC ==
[2022-01-06 11:24] LABS: BASO % 0.3 % (0.0-1.0); EOS # 0.1 10^3/uL (0.0-0.5); EOS % 1.9 % (0.0-3.0); HEMATOCRIT 45.9 % (42.0-52.0); HEMOGLOBIN 15.3 g/dl (13.5-17.5); LYMPH # 1.6 10^3/uL (1.5-5.0); MEAN CORPUSCULAR HEMOGLOBIN 29.4 pg (27.0-33.0); MEAN CORPUSCULAR HGB CONC 33.3 g/dl (32.0-36.5); MEAN CORPUSCULAR VOLUME 88.3 fl (80.0-96.0); MONO # 0.5 10^3/uL (0.0-0.8); NEUTROPHILS # 4.2 10^3/uL (1.5-8.5); PLATELET COUNT, AUTOMATED 209 10^3/uL (150-450); WHITE BLOOD COUNT 6.4 10^3/uL (4.0-10.0)
[2022-01-06 12:14] LABS: MALB URINE SIEMENS 37.8 MG/L; MAU/CREAT RATIO 37.4 MCG/MG (0.0-30.0)
[2022-01-06 12:16] LABS: ALBUMIN 3.8 GM/DL (3.2-5.2); ALT/SGPT 74 U/L (12-78); BILIRUBIN,TOTAL 0.9 MG/DL (0.2-1.0); BLOOD UREA NITROGEN 28 MG/DL (7-18); CALCIUM LEVEL 9.1 MG/DL (8.8-10.2); CARBON DIOXIDE LEVEL 33 MEQ/L (21-32); CHLORIDE LEVEL 98 MEQ/L (98-107); CREATININE FOR GFR 1.18 MG/DL (0.70-1.30); GLOMERULAR FILTRATION RATE > 60.0 (>49); GLUCOSE, FASTING 209 MG/DL (70-100); POTASSIUM SERUM 3.8 MEQ/L (3.5-5.1); SODIUM LEVEL 138 MEQ/L (136-145); TOTAL PROTEIN 7.4 GM/DL (6.4-8.2)
[2022-01-06 12:50] LABS: TOTAL 25(OH) VITAMIN D 51.1 NG/ML (30.0-100.0)
== END ==
LOC: M PLALAB 08:10
PROVIDERS: ATTEND Nurse Practitioner Adult Health
DX: E11.65 Type 2 diabetes mellitus with hyperglycemia (principal)

== ENCOUNTER → 2022-04-09 | Outpatient (CLI) | payer BC ==
[2022-04-09 10:54] LABS: BASO % 0.5 % (0.0-1.0); EOS # 0.2 10^3/uL (0.0-0.5); EOS % 2.9 % (0.0-3.0); HEMATOCRIT 46.9 % (42.0-52.0); HEMOGLOBIN 15.4 g/dl (13.5-17.5); LYMPH # 1.6 10^3/uL (1.5-5.0); LYMPH % 24.5 % (24.0-44.0); MEAN CORPUSCULAR HEMOGLOBIN 29.3 pg (27.0-33.0); MEAN CORPUSCULAR HGB CONC 32.8 g/dl (32.0-36.5); MEAN CORPUSCULAR VOLUME 89.2 fl (80.0-96.0); MONO # 0.4 10^3/uL (0.0-0.8); MONO % 6.3 % (2.0-8.0); NEUTROPHILS # 4.3 10^3/uL (1.5-8.5); NEUTROPHILS % 65.3 % (36.0-66.0); PLATELET COUNT, AUTOMATED 218 10^3/uL (150-450); RED BLOOD COUNT 5.26 10^6/uL (4.30-6.10); WHITE BLOOD COUNT 6.5 10^3/uL (4.0-10.0)
[2022-04-09 11:12] LABS: HEMOGLOBIN A1c 8.7 % (4.0-6.0)
[2022-04-09 11:17] LABS: ALBUMIN 3.8 G/DL (3.2-5.2); ALKALINE PHOSPHATASE 74 U/L (46-116); ALT/SGPT 67 U/L (7.0-40); AST/SGOT 34 U/L (<34); BILIRUBIN,TOTAL 0.9 MG/DL (0.3-1.2); BLOOD UREA NITROGEN 28 MG/DL (9-23); CALCIUM LEVEL 8.9 MG/DL (8.3-10.6); CARBON DIOXIDE LEVEL 32 MMOL/L (20-31); CHLORIDE LEVEL 95 MMOL/L (98-107); CHOLESTEROL LEVEL 121 MG/DL (<200); CREATININE FOR GFR 1.23 MG/DL (0.70-1.30); GLOMERULAR FILTRATION RATE > 60.0 (>49); GLUCOSE, FASTING 220 MG/DL (74-106); HDL CHOLESTEROL 40.2 MG/DL (>40); NON-HDL-C 81 MG/DL; POTASSIUM SERUM 3.6 MMOL/L (3.5-5.1); SODIUM LEVEL 137 MMOL/L (136-145); TOTAL PROTEIN 6.9 G/DL (5.7-8.2); TRIGLYCERIDES LEVEL 124 MG/DL (<150)
== END ==
LOC: M PLALAB 07:09
PROVIDERS: ATTEND Nurse Practitioner Adult Health
DX: E11.65 Type 2 diabetes mellitus with hyperglycemia (principal)

== ENCOUNTER → 2022-07-21 | Outpatient (CLI) | payer BC ==
[~2022-07-21] MED LIST changes: -LOSA100T45 PO; +LOSA100T46 PO
[2022-07-21 10:58] LABS: BASO % 0.5 % (0.0-1.0); EOS # 0.2 10^3/uL (0.0-0.5); EOS % 2.9 % (0.0-3.0); HEMATOCRIT 45.8 % (42.0-52.0); HEMOGLOBIN 15.1 g/dl (13.5-17.5); LYMPH # 1.5 10^3/uL (1.5-5.0); LYMPH % 26.2 % (24.0-44.0); MEAN CORPUSCULAR HEMOGLOBIN 29.9 pg (27.0-33.0); MEAN CORPUSCULAR VOLUME 90.7 fl (80.0-96.0); MONO # 0.4 10^3/uL (0.0-0.8); MONO % 6.1 % (2.0-8.0); NEUTROPHILS # 3.8 10^3/uL (1.5-8.5); NEUTROPHILS % 63.8 % (36.0-66.0); PLATELET COUNT, AUTOMATED 188 10^3/uL (150-450); RED BLOOD COUNT 5.05 10^6/uL (4.30-6.10); WHITE BLOOD COUNT 5.9 10^3/uL (4.0-10.0)
[2022-07-21 11:02] LABS: ALBUMIN 3.6 G/DL (3.2-5.2); ALKALINE PHOSPHATASE 63 U/L (46-116); ALT/SGPT 54 U/L (7.0-40); AST/SGOT 17 U/L (<34); BILIRUBIN,TOTAL 0.7 MG/DL (0.3-1.2); BLOOD UREA NITROGEN 34 MG/DL (9-23); CALCIUM LEVEL 8.6 MG/DL (8.3-10.6); CARBON DIOXIDE LEVEL 32 MMOL/L (20-31); CHLORIDE LEVEL 100 MMOL/L (98-107); CREATININE FOR GFR 1.25 MG/DL (0.70-1.30); GLOMERULAR FILTRATION RATE > 60.0 (>49); GLUCOSE, FASTING 237 MG/DL (74-106); POTASSIUM SERUM 3.6 MMOL/L (3.5-5.1); SODIUM LEVEL 138 MMOL/L (136-145); TOTAL PROTEIN 6.7 G/DL (5.7-8.2)
[2022-07-21 11:06] LABS: HEMOGLOBIN A1c 8.6 % (4.0-6.0)
== END ==
LOC: M PLALAB 07:18
PROVIDERS: ATTEND Nurse Practitioner Adult Health
DX: E11.65 Type 2 diabetes mellitus with hyperglycemia (principal)

== ENCOUNTER → 2022-10-07 | Outpatient (CLI) | payer BC ==
[~2022-10-07] MED LIST changes: -K-TA10TA2 PO; +POTA-165 PO
[2022-10-07 14:07] LABS: BASO % 0.3 % (0.0-1.0); EOS # 0.1 10^3/uL (0.0-0.5); HEMATOCRIT 48.5 % (42.0-52.0); HEMOGLOBIN 15.9 g/dl (13.5-17.5); LYMPH # 1.7 10^3/uL (1.5-5.0); LYMPH % 23.5 % (24.0-44.0); MEAN CORPUSCULAR HEMOGLOBIN 29.3 pg (27.0-33.0); MEAN CORPUSCULAR HGB CONC 32.8 g/dl (32.0-36.5); MEAN CORPUSCULAR VOLUME 89.5 fl (80.0-96.0); MONO # 0.4 10^3/uL (0.0-0.8); MONO % 5.1 % (2.0-8.0); NEUTROPHILS # 4.8 10^3/uL (1.5-8.5); NEUTROPHILS % 68.5 % (36.0-66.0); PLATELET COUNT, AUTOMATED 213 10^3/uL (150-450); RED BLOOD COUNT 5.42 10^6/uL (4.30-6.10); WHITE BLOOD COUNT 7.1 10^3/uL (4.0-10.0)
[2022-10-07 14:34] LABS: IRON (FE) 48 UG/DL (65-175); PERCENT SATURATION 16.4 % (19.7-50.0); TOTAL 25(OH) VITAMIN D 39.6 NG/ML (20.0-100.0); TOTAL IRON BINDING CAPACITY 292 UG/DL (250-425); VITAMIN B12 LEVEL 589 PG/ML (211-911)
[2022-10-07 14:35] LABS: ALKALINE PHOSPHATASE 74 U/L (46-116); ALT/SGPT 36 U/L (7.0-40); AST/SGOT 18 U/L (<34); BILIRUBIN,TOTAL 0.9 MG/DL (0.3-1.2); BLOOD UREA NITROGEN 23 MG/DL (9-23); CALCIUM LEVEL 8.8 MG/DL (8.3-10.6); CARBON DIOXIDE LEVEL 28 MMOL/L (20-31); CHLORIDE LEVEL 103 MMOL/L (98-107); CREATININE FOR GFR 1.11 MG/DL (0.70-1.30); FERRITIN 132.4 NG/ML (10.5-307.3); GLOMERULAR FILTRATION RATE > 60.0 (>49); GLUCOSE, FASTING 117 MG/DL (74-106); SODIUM LEVEL 142 MMOL/L (136-145); TOTAL PROTEIN 7.2 G/DL (5.7-8.2)
[2022-10-07 14:37] LABS: FREE T4 1.15 NG/DL (0.89-1.76); THYROID STIMULATING HORMONE 1.627 uIU/ML (0.55-4.78)
== END ==
LOC: M PLALAB 11:47
PROVIDERS: ATTEND Family Medicine
DX: R53.83 Other fatigue (principal)

== ENCOUNTER → 2022-11-04 | Outpatient (CLI) | payer BC ==
[2022-11-04 16:01] LABS: BASO % 0.2 % (0.0-1.0); EOS # 0.1 10^3/uL (0.0-0.5); EOS % 1.2 % (0.0-3.0); HEMATOCRIT 47.6 % (42.0-52.0); HEMOGLOBIN 15.6 g/dl (13.5-17.5); LYMPH # 1.3 10^3/uL (1.5-5.0); LYMPH % 15.7 % (24.0-44.0); MEAN CORPUSCULAR HEMOGLOBIN 28.9 pg (27.0-33.0); MEAN CORPUSCULAR HGB CONC 32.8 g/dl (32.0-36.5); MEAN CORPUSCULAR VOLUME 88.3 fl (80.0-96.0); MONO # 0.5 10^3/uL (0.0-0.8); MONO % 5.8 % (2.0-8.0); NEUTROPHILS # 6.2 10^3/uL (1.5-8.5); NEUTROPHILS % 76.5 % (36.0-66.0); PLATELET COUNT, AUTOMATED 201 10^3/uL (150-450); RED BLOOD COUNT 5.39 10^6/uL (4.30-6.10); WHITE BLOOD COUNT 8.2 10^3/uL (4.0-10.0)
[2022-11-04 16:29] LABS: HEMOGLOBIN A1c 6.9 % (4.0-6.0)
[2022-11-04 16:32] LABS: ALKALINE PHOSPHATASE 75 U/L (46-116); ALT/SGPT 43 U/L (7.0-40); AST/SGOT 24 U/L (<34); BLOOD UREA NITROGEN 18 MG/DL (9-23); CALCIUM LEVEL 9.3 MG/DL (8.3-10.6); CARBON DIOXIDE LEVEL 27 MMOL/L (20-31); CHLORIDE LEVEL 104 MMOL/L (98-107); CHOLESTEROL LEVEL 114 MG/DL (<200); CHOLESTEROL RISK RATIO 2.84 (<5); CREATININE FOR GFR 1.05 MG/DL (0.70-1.30); CREATININE, URINE 111.5 MG/DL; GLOMERULAR FILTRATION RATE > 60.0 (>49); GLUCOSE, FASTING 110 MG/DL (74-106); HDL CHOLESTEROL 40.1 MG/DL (>40); LDL CHOLESTEROL 53.9 MG/DL (<100); NON-HDL-C 73.9 MG/DL; POTASSIUM SERUM 4.1 MMOL/L (3.5-5.1); SODIUM LEVEL 141 MMOL/L (136-145); TRIGLYCERIDES LEVEL 100 MG/DL (<150)
== END ==
LOC: M PLALAB 12:07
PROVIDERS: ATTEND Family Medicine
DX: E11.65 Type 2 diabetes mellitus with hyperglycemia (principal)

== ENCOUNTER → 2023-02-10 | Outpatient (REF) | payer BC ==
[~2023-02-10] MED LIST changes: -OXYB5TAB10 PO; +OXYB5TAB11 PO
[2023-02-10 13:53] LABS: APPEARANCE, URINE CLOUDY (CLEAR); BACTERIA, URINE AUTO 1+ (NEGATIVE); BILIRUBIN, URINE AUTO NEGATIVE (NEGATIVE); BLOOD, URINE BLOOD 3+ (NEGATIVE); COLOR, URINE AMBER (YELLOW); GLUCOSE, URINE (UA) AUTO 3+ mg/dL (NEGATIVE); KETONE, URINE AUTO 1+ mg/dL (NEGATIVE); LEUKOCYTE ESTERASE, URINE AUTO NEGATIVE (NEGATIVE); MUCUS, URINE SMALL (NEGATIVE); NITRITE, URINE AUTO NEGATIVE (NEGATIVE); PROTEIN, URINE AUTO 2+ mg/dL (NEGATIVE); RBC, URINE AUTO TNTC /HPF (0-3); SPECIFIC GRAVITY URINE AUTO 1.024 (1.002-1.035); SQUAMOUS EPITHELIAL CELL UR AU 0 /HPF (0-6); WBC, URINE AUTO 0 /HPF (0-3)
== END ==
LOC: M SMT 13:21
PROVIDERS: ATTEND Physician Assistant
DX: R31.0 Gross hematuria (principal)

== ENCOUNTER → 2023-02-11 | Outpatient (CLI) | payer BC ==
[2023-02-11 13:37] LABS: BASO % 0.5 % (0.0-1.0); EOS # 0.1 10^3/uL (0.0-0.5); EOS % 1.6 % (0.0-3.0); HEMATOCRIT 44.4 % (42.0-52.0); HEMOGLOBIN 14.6 g/dl (13.5-17.5); LYMPH # 1.2 10^3/uL (1.5-5.0); LYMPH % 21.4 % (24.0-44.0); MEAN CORPUSCULAR HGB CONC 32.9 g/dl (32.0-36.5); MEAN CORPUSCULAR VOLUME 91.4 fl (80.0-96.0); MONO # 0.4 10^3/uL (0.0-0.8); MONO % 7.3 % (2.0-8.0); NEUTROPHILS % 68.7 % (36.0-66.0); PLATELET COUNT, AUTOMATED 224 10^3/uL (150-450); RED BLOOD COUNT 4.86 10^6/uL (4.30-6.10); WHITE BLOOD COUNT 5.8 10^3/uL (4.0-10.0)
[2023-02-11 13:48] LABS: ALBUMIN 3.4 G/DL (3.2-5.2); ALKALINE PHOSPHATASE 72 U/L (46-116); ALT/SGPT 25 U/L (7.0-40); AST/SGOT 25 U/L (<34); BILIRUBIN,TOTAL 0.9 MG/DL (0.3-1.2); BLOOD UREA NITROGEN 20 MG/DL (9-23); CALCIUM LEVEL 8.8 MG/DL (8.3-10.6); CARBON DIOXIDE LEVEL 26 MMOL/L (20-31); CHLORIDE LEVEL 101 MMOL/L (98-107); CHOLESTEROL LEVEL 120 MG/DL (<200); CHOLESTEROL RISK RATIO 3.06 (<5); CREATININE FOR GFR 1.06 MG/DL (0.70-1.30); FREE T4 1.21 NG/DL (0.89-1.76); GLOMERULAR FILTRATION RATE > 60.0 (>49); GLUCOSE, FASTING 87 MG/DL (74-106); HDL CHOLESTEROL 39.1 MG/DL (>40); LDL CHOLESTEROL 64.9 MG/DL (<100); NON-HDL-C 80.9 MG/DL; POTASSIUM SERUM 4.1 MMOL/L (3.5-5.1); SODIUM LEVEL 135 MMOL/L (136-145); THYROID STIMULATING HORMONE 1.326 uIU/ML (0.55-4.78); TOTAL PROTEIN 6.6 G/DL (5.7-8.2); TRIGLYCERIDES LEVEL 80 MG/DL (<150)
[2023-02-11 13:55] LABS: HEMOGLOBIN A1c 5.1 % (4.0-6.0)
== END ==
LOC: M PLALAB 08:57
PROVIDERS: ATTEND Family Medicine
DX: E11.65 Type 2 diabetes mellitus with hyperglycemia (principal); I10 Essential (primary) hypertension; E78.2 Mixed hyperlipidemia

== ENCOUNTER → 2023-02-18 | Outpatient (CLI) | payer BC | LOC: M RAD 10:12 | PROVIDERS: ATTEND Physician Assistant | DX: R31.0 Gross hematuria (principal) ==

== ENCOUNTER 2023-03-25 06:10 | Day surgery (SDC) | payer BC ==
[~2023-03-25] VITALS: Ht 175.3 cm; Wt 134.3 kg
[~2023-03-25 06:10] MED LIST changes: +BAYE81TA10 PO; +CVS1CAP2 PO; +FARX1TAB3 PO; +FERR32TA PO; +GABA-282 PO; +METF-877 PO; +MYRB50TA PO; +OMEP-173 PO; +POTA-151 PO; +TAMS1CAP17 PO; +VITMTA PO
[2023-03-25] MEDS ORDERED: ceFAZolin SOD 2 GM in IV 1 EA IV ONE (06:30)
[2023-03-25] MEDS ORDERED: ceFAZolin SOD 1 GM in D5W MINI-BAG PLUS 50 ML IV ONE (06:30)
[2023-03-25] MEDS ORDERED: LR 1,000 ML IV SCH ×2 (06:40→08:55)
[2023-03-25] MEDS ORDERED: GLUCAGON INJ 1MG VIAL SC PRN (06:40)
[2023-03-25] MEDS ORDERED: DEXTROSE 50% 50ML SYRINGE IV PRN (06:40)
[2023-03-25] MEDS ORDERED: INSULIN LISPRO (NovoLOG) PER UNIT SC PRN (06:40)
[2023-03-25] MEDS ORDERED: GLUCOSE 4GM CHEW TABLET PO PRN (06:40)
[2023-03-25] MEDS ORDERED: LIDOCAINE 2% 100MG/5ML SDV (FOR ANES.) As Ordered ONE (06:58)
[2023-03-25] MEDS ORDERED: propofoL 200 MG/20 ML VIAL As Ordered ONE (06:58)
[2023-03-25] MEDS ORDERED: ONDANSETRON 4MG 2ML VIAL As Ordered ONE (06:59)
[2023-03-25] MEDS ORDERED: MIDAZOLAM INJ 2MG/2ML VIAL As Ordered ONE (07:01)
[2023-03-25] MEDS ORDERED: fentaNYL 100 MCG/2 ML INJECTION As Ordered ONE (07:01)
[2023-03-25] MEDS ORDERED: ACETAMINOPHEN 1000MG 100ML IV BAG As Ordered ONE (07:46)
[2023-03-25] MEDS ORDERED: METOCLOPRAMIDE INJ 10MG/2ML VIAL IV PRN (08:55)
[2023-03-25] MEDS ORDERED: ONDANSETRON 4MG 2ML VIAL IV PRN (08:55)
[2023-03-25] MEDS ORDERED: oxyCODONE 5MG TAB PO PRN (08:55)
[2023-03-25] MEDS ORDERED: fentaNYL 100 MCG/2 ML INJECTION IV PRN (08:55)
[2023-03-25] MEDS ORDERED: ACETAMINOPHEN TAB 650MG DOSE (2X325MG) PO PRN (09:10)
[2023-03-25 09:47] VITALS: BP 156/74; TEMP 96.8; O2SAT 95
== END 2023-03-25 09:59 | disposition home or self-care (01) ==
LOC: M SDC 06:10
PROVIDERS: ATTEND Urology
DX: N21.0 Calculus in bladder (principal); N40.1 Benign prostatic hyperplasia with lower urinary tract symptoms; N13.8 Other obstructive and reflux uropathy; E11.40 Type 2 diabetes mellitus with diabetic neuropathy, unspecified; I10 Essential (primary) hypertension; E78.00 Pure hypercholesterolemia, unspecified; K21.9 Gastro-esophageal reflux disease without esophagitis; Z87.442 Personal history of urinary calculi; Z79.4 Long term (current) use of insulin; Z79.84 Long term (current) use of oral hypoglycemic drugs; Z79.82 Long term (current) use of aspirin; Z79.899 Other long term (current) drug therapy; G47.30 Sleep apnea, unspecified
CPT/HCPCS: 52318; 82365; A4215; C1769; J0131; J0690; J2250; J2405; J3010

== ENCOUNTER → 2023-04-24 | Outpatient (CLI) | payer BC ==
[2023-04-24 11:50] LABS: BASO % 0.4 % (0.0-1.0); EOS # 0.1 10^3/uL (0.0-0.5); EOS % 1.3 % (0.0-3.0); HEMATOCRIT 49.5 % (42.0-52.0); HEMOGLOBIN 16.3 g/dl (13.5-17.5); LYMPH # 1.4 10^3/uL (1.5-5.0); LYMPH % 27.4 % (24.0-44.0); MEAN CORPUSCULAR HEMOGLOBIN 30.3 pg (27.0-33.0); MEAN CORPUSCULAR HGB CONC 32.9 g/dl (32.0-36.5); MONO # 0.4 10^3/uL (0.0-0.8); MONO % 7.9 % (2.0-8.0); NEUTROPHILS # 3.3 10^3/uL (1.5-8.5); NEUTROPHILS % 62.8 % (36.0-66.0); PLATELET COUNT, AUTOMATED 205 10^3/uL (150-450); RED BLOOD COUNT 5.38 10^6/uL (4.30-6.10); WHITE BLOOD COUNT 5.2 10^3/uL (4.0-10.0)
[2023-04-24 11:55] LABS: ALBUMIN 3.9 G/DL (3.2-5.2); ALKALINE PHOSPHATASE 72 U/L (46-116); ALT/SGPT 27 U/L (7.0-40); AST/SGOT 20 U/L (<34); BILIRUBIN,TOTAL 0.8 MG/DL (0.3-1.2); BLOOD UREA NITROGEN 25 MG/DL (9-23); CALCIUM LEVEL 9.1 MG/DL (8.3-10.6); CARBON DIOXIDE LEVEL 29 MMOL/L (20-31); CHLORIDE LEVEL 105 MMOL/L (98-107); CREATININE FOR GFR 1.12 MG/DL (0.70-1.30); GLOMERULAR FILTRATION RATE > 60.0 (>49); GLUCOSE, FASTING 103 MG/DL (74-106); POTASSIUM SERUM 4.4 MMOL/L (3.5-5.1); SODIUM LEVEL 139 MMOL/L (136-145); TOTAL PROTEIN 6.9 G/DL (5.7-8.2)
[2023-04-24 12:08] LABS: HEMOGLOBIN A1c 5.1 % (4.0-6.0)
== END ==
LOC: M PLALAB 07:48
PROVIDERS: ATTEND Nurse Practitioner Adult Health
DX: E11.65 Type 2 diabetes mellitus with hyperglycemia (principal)

== ENCOUNTER → 2023-10-21 | Outpatient (CLI) | payer BC ==
[~2023-10-21] MED LIST changes: +ONDA-282 PO; -ONDA4TAB6 PO; -OXYB5TAB11 PO; +OXYB5TAB14 PO
[2023-10-21 11:53] LABS: BASO % 0.5 % (0.0-1.0); EOS # 0.3 10^3/uL (0.0-0.5); EOS % 4.8 % (0.0-3.0); HEMOGLOBIN 17.3 g/dl (13.5-17.5); LYMPH # 1.5 10^3/uL (1.5-5.0); LYMPH % 26.3 % (24.0-44.0); MEAN CORPUSCULAR HEMOGLOBIN 31.1 pg (27.0-33.0); MEAN CORPUSCULAR HGB CONC 33.9 g/dl (32.0-36.5); MEAN CORPUSCULAR VOLUME 91.6 fl (80.0-96.0); MONO # 0.4 10^3/uL (0.0-0.8); MONO % 6.2 % (2.0-8.0); NEUTROPHILS # 3.5 10^3/uL (1.5-8.5); NEUTROPHILS % 61.8 % (36.0-66.0); PLATELET COUNT, AUTOMATED 172 10^3/uL (150-450); RED BLOOD COUNT 5.57 10^6/uL (4.30-6.10); WHITE BLOOD COUNT 5.7 10^3/uL (4.0-10.0)
[2023-10-21 12:08] LABS: HEMOGLOBIN A1c 5.4 % (4.0-6.0)
[2023-10-21 12:22] LABS: CREATININE, URINE 87.9 MG/DL; MAU/CREAT RATIO 15.9 MCG/MG (0.0-30.0)
[2023-10-21 12:23] LABS: ALBUMIN 4.1 G/DL (3.2-5.2); ALKALINE PHOSPHATASE 73 U/L (46-116); ALT/SGPT 32 U/L (7.0-40); AST/SGOT 17 U/L (<34); BILIRUBIN,TOTAL 0.8 MG/DL (0.3-1.2); BLOOD UREA NITROGEN 22 MG/DL (9-23); CARBON DIOXIDE LEVEL 29 MMOL/L (20-31); CHLORIDE LEVEL 106 MMOL/L (98-107); CREATININE FOR GFR 1.09 MG/DL (0.70-1.30); GLOMERULAR FILTRATION RATE > 60.0 (>49); GLUCOSE, FASTING 114 MG/DL (74-106); POTASSIUM SERUM 4.2 MMOL/L (3.5-5.1); SODIUM LEVEL 141 MMOL/L (136-145); TOTAL PROTEIN 7.1 G/DL (5.7-8.2)
[2023-10-21 12:25] LABS: VITAMIN B12 LEVEL 798 PG/ML (211-911)
== END ==
LOC: M PLALAB 07:11
PROVIDERS: ATTEND Physician Assistant
DX: E11.40 Type 2 diabetes mellitus with diabetic neuropathy, unspecified (principal)

== ENCOUNTER 2024-01-07 21:15 | Emergency (ER) | payer BC ==
[~2024-01-07] VITALS: Ht 175.3 cm; Wt 141.6 kg
[~2024-01-07 21:15] MED LIST changes: +GABA-1172 PO; -GABA-282 PO
[2024-01-07 21:20] VITALS: BP 159/80; TEMP 97.2; O2SAT 100
[2024-01-07 21:55] LABS: BASO % 0.3 % (0.0-1.0); EOS # 0.1 10^3/uL (0.0-0.5); EOS % 2.2 % (0.0-3.0); HEMATOCRIT 47.7 % (42.0-52.0); HEMOGLOBIN 16.5 g/dl (13.5-17.5); LYMPH # 1.9 10^3/uL (1.5-5.0); LYMPH % 33.2 % (24.0-44.0); MEAN CORPUSCULAR HEMOGLOBIN 31.1 pg (27.0-33.0); MEAN CORPUSCULAR HGB CONC 34.6 g/dl (32.0-36.5); MONO # 0.4 10^3/uL (0.0-0.8); MONO % 6.7 % (2.0-8.0); NEUTROPHILS # 3.3 10^3/uL (1.5-8.5); NEUTROPHILS % 57.3 % (36.0-66.0); PLATELET COUNT, AUTOMATED 177 10^3/uL (150-450); WHITE BLOOD COUNT 5.8 10^3/uL (4.0-10.0)
[2024-01-07 22:20] LABS: ALBUMIN 3.9 G/DL (3.2-5.2); BILIRUBIN,DIRECT 0.3 MG/DL (<0.4); BILIRUBIN,TOTAL 0.9 MG/DL (0.3-1.2); CALCIUM LEVEL 9.3 MG/DL (8.3-10.6); CREATININE FOR GFR 1.33 MG/DL (0.70-1.30); POTASSIUM SERUM 4.1 MMOL/L (3.5-5.1); TOTAL PROTEIN 7.2 G/DL (5.7-8.2)
[2024-01-08] MEDS ORDERED: TIRZ10PE INJ (17:49)
[2024-01-08] MEDS ORDERED: THERTAB19 PO (17:49)
== END 2024-01-08 00:05 | disposition left against medical advice (07) ==
LOC: M ED 21:15
DX: Z53.21 Procedure and treatment not carried out due to patient leaving prior to being seen by health care provider (principal)

== ENCOUNTER 2024-01-08 15:25 | Inpatient (IN) | payer BC ==
[~2024-01-08] VITALS: Ht 175.3 cm; Wt 140.9 kg
[~2024-01-08 15:25] MED LIST changes: -CIPR-249 PO; -GASTROGRAFIN SOLUTION 30ML As Ordered ONE; -ISOVUE-370 76% 100ML VIAL As Ordered ONE; -METR-265 PO; -PERCOCET PO; -THERTAB19 PO; -TIRZ10PE INJ
[2024-01-08 16:13] LABS: BASO % 0.1 % (0.0-1.0); HEMATOCRIT 48.8 % (42.0-52.0); HEMOGLOBIN 16.9 g/dl (13.5-17.5); LYMPH # 0.7 10^3/uL (1.5-5.0); LYMPH % 4.9 % (24.0-44.0); MEAN CORPUSCULAR HEMOGLOBIN 31.4 pg (27.0-33.0); MEAN CORPUSCULAR HGB CONC 34.6 g/dl (32.0-36.5); MEAN CORPUSCULAR VOLUME 90.5 fl (80.0-96.0); MONO # 0.6 10^3/uL (0.0-0.8); MONO % 4.5 % (2.0-8.0); NEUTROPHILS # 12.5 10^3/uL (1.5-8.5); PLATELET COUNT, AUTOMATED 166 10^3/uL (150-450); RED BLOOD COUNT 5.39 10^6/uL (4.30-6.10); WHITE BLOOD COUNT 13.9 10^3/uL (4.0-10.0)
[2024-01-08] MEDS: PIPERACILLIN/TAZOBACTAM SOD 3.375 GM in DEXTROSE 5% (D5W) ADV/MINI-BAG 50 ML IV ONE (16:18)
[2024-01-08] MEDS: MORPHINE 4 MG/ML 1ML VIAL IV ONE (16:21)
[2024-01-08] MEDS: ONDANSETRON 4MG 2ML VIAL IV ONE (16:21)
[2024-01-08] MEDS: ACETAMINOPHEN 325 MG TAB PO ONE (16:21)
[2024-01-08 16:29] LABS: INR 1.14; PARTIAL THROMBOPLASTIN TIME 29.4 SECONDS (24.8-34.2); PROTHROMBIN TIME 14.3 SECONDS (12.5-14.5)
[2024-01-08 16:43] LABS: LIPASE 43 U/L (12-53)
[2024-01-08 16:44] LABS: AMYLASE 62 U/L (30-118)
[2024-01-08 16:46] LABS: ALBUMIN 3.7 G/DL (3.2-5.2); ALKALINE PHOSPHATASE 64 U/L (46-116); ALT/SGPT 30 U/L (7.0-40); AST/SGOT 23 U/L (<34); BILIRUBIN,DIRECT 0.8 MG/DL (<0.4); BILIRUBIN,TOTAL 2.3 MG/DL (0.3-1.2); BLOOD UREA NITROGEN 22 MG/DL (9-23); CALCIUM LEVEL 8.9 MG/DL (8.3-10.6); CARBON DIOXIDE LEVEL 28 MMOL/L (20-31); CHLORIDE LEVEL 105 MMOL/L (98-107); CREATININE FOR GFR 1.15 MG/DL (0.70-1.30); GLOMERULAR FILTRATION RATE > 60.0 (>49); GLUCOSE, FASTING 133 MG/DL (74-106); POTASSIUM SERUM 4.1 MMOL/L (3.5-5.1); SODIUM LEVEL 138 MMOL/L (136-145); TOTAL PROTEIN 7.1 G/DL (5.7-8.2)
[2024-01-08] MEDS ORDERED: MOM 30ML SUSPENSION UDC PO PRN (17:10)
[2024-01-08] MEDS ORDERED: MAALOX 30 ML SUSP *UDC PO PRN (17:10)
[2024-01-08] MEDS ORDERED: ACETAMINOPHEN 325 MG TAB PO PRN (17:10)
[2024-01-08] MEDS ORDERED: GLUCAGON INJ 1MG VIAL SC PRN (17:30)
[2024-01-08] MEDS ORDERED: GLUCOSE 4 GM CHEW PO PRN (17:30)
[2024-01-08] MEDS ORDERED: DEXTROSE 50% 50ML SYRINGE IV PRN (17:30)
[2024-01-08] MEDS ORDERED: THERTAB19 PO (17:49)
[2024-01-08] MEDS ORDERED: TIRZ10PE INJ (17:49)
[2024-01-08] MEDS ORDERED: HOME MED LIST COMPLETE! XX SCH (17:50)
[2024-01-08 18:00] VITALS: BP 153/68; TEMP 98.8; O2SAT 90
[2024-01-08] MEDS: INSULIN LISPRO (NovoLOG) PER UNIT SC SCH (18:00)
[2024-01-08] MEDS: NS 1,000 ML IV SCH (19:40)
[2024-01-08 19:49] VITALS: BP 117/70; TEMP 98.1; O2SAT 95
[2024-01-08] MEDS: SIMVASTATIN 20 MG TAB PO SCH (21:10)
[2024-01-08] MEDS: HEPARIN SOD (PORCINE) 5000UNITS/ML 1ML VIAL/SYRINGE SC SCH (21:10)
[2024-01-08] MEDS: GABAPENTIN 300 MG CAP PO SCH (21:10)
[2024-01-08] MEDS: PIPERACILLIN/TAZOBACTAM SOD 3.375 GM in DEXTROSE 5% (D5W) ADV/MINI-BAG 50 ML IV SCH (22:23)
[2024-01-09] VITALS (11 sets, daily range): BP systolic 140–193; BP diastolic 71–98; TEMP 97.5–98.8; O2SAT 91–97
[2024-01-09 06:22] LABS: HEMATOCRIT 48.7 % (42.0-52.0); HEMOGLOBIN 16.3 g/dl (13.5-17.5); MEAN CORPUSCULAR HEMOGLOBIN 30.5 pg (27.0-33.0); MEAN CORPUSCULAR HGB CONC 33.5 g/dl (32.0-36.5); PLATELET COUNT, AUTOMATED 146 10^3/uL (150-450); RED BLOOD COUNT 5.35 10^6/uL (4.30-6.10); WHITE BLOOD COUNT 9.4 10^3/uL (4.0-10.0)
[2024-01-09 07:00] LABS: ALBUMIN 3.2 G/DL (3.2-5.2); ALKALINE PHOSPHATASE 61 U/L (46-116); ALT/SGPT 27 U/L (7.0-40); AST/SGOT 29 U/L (<34); BILIRUBIN,TOTAL 3.6 MG/DL (0.3-1.2); BLOOD UREA NITROGEN 19 MG/DL (9-23); CALCIUM LEVEL 8.6 MG/DL (8.3-10.6); CARBON DIOXIDE LEVEL 25 MMOL/L (20-31); CHLORIDE LEVEL 107 MMOL/L (98-107); CREATININE FOR GFR 1.15 MG/DL (0.70-1.30); GLOMERULAR FILTRATION RATE > 60.0 (>49); GLUCOSE, FASTING 116 MG/DL (74-106); MAGNESIUM LEVEL 1.9 MG/DL (1.8-2.4); POTASSIUM SERUM 4.4 MMOL/L (3.5-5.1); SODIUM LEVEL 139 MMOL/L (136-145); TOTAL PROTEIN 6.5 G/DL (5.7-8.2)
[2024-01-09 07:40] LABS: ATYPICAL LYMPH 2 % (0-5); LYMPHOCYTES 1 % (16-44); MONOCYTES 2 % (0-5); NEUTROPHILS 87 % (28-66)
[2024-01-09 07:44] LABS: PLATELET CLUMPS SMALL AMT; PLATELET ESTIMATE NORMAL (NORMAL)
[2024-01-09] MEDS ORDERED: ROCURONIUM BROMIDE 50MG/5ML VIAL As Ordered ONE (08:34)
[2024-01-09] MEDS ORDERED: SUGAMMADEX SODIUM 500 MG/5 ML VIAL (BRIDION) As Ordered ONE (08:34)
[2024-01-09] MEDS ORDERED: fentaNYL 250 MCG/5 ML INJECTION As Ordered ONE (08:34)
[2024-01-09] MEDS ORDERED: LIDOCAINE 2% 100MG/5ML SDV (FOR ANES.) As Ordered ONE (08:34)
[2024-01-09] MEDS ORDERED: MIDAZOLAM INJ 2MG/2ML VIAL As Ordered ONE (08:34)
[2024-01-09] MEDS ORDERED: ONDANSETRON 4MG 2ML VIAL As Ordered ONE (08:34)
[2024-01-09] MEDS ORDERED: propofoL 200 MG/20 ML VIAL As Ordered ONE (08:34)
[2024-01-09] MEDS ORDERED: ACETAMINOPHEN 1000MG 100ML IV BAG As Ordered ONE (08:34)
[2024-01-09] MEDS ORDERED: INDOCYANINE GREEN 25MG VIAL (IC-GREEN) As Ordered ONE (08:34)
[2024-01-09] MEDS ORDERED: dexmedeTOMIDine (4MCG/ML)200MCG/50ML BTL (PRECEDEX) As Ordered ONE (08:38)
[2024-01-09] MEDS ORDERED: MYRBETRIQ 50MG TABLET (PATIENT'S OWN MED) PO SCH (09:00)
[2024-01-09] MEDS: ASPIRIN 81MG ENTERIC TABLET PO SCH (09:00)
[2024-01-09] MEDS ORDERED: KETOROLAC 60MG 2ML VIAL As Ordered ONE (09:11)
[2024-01-09] MEDS ORDERED: HYDROmorphone HCL 2MG/ML 1ML VIAL As Ordered ONE (10:13)
[2024-01-09] MEDS ORDERED: fentaNYL 100 MCG/2 ML INJECTION IV PRN (11:10)
[2024-01-09] MEDS ORDERED: MEPERIDINE 25 MG/ML 1ML VIAL IV PRN (11:10)
[2024-01-09] MEDS ORDERED: HYDROMORPHONE HCL 0.5 MG/ 0.5 ML SYRINGE IV PRN ×2 (11:10)
[2024-01-09] MEDS ORDERED: METOCLOPRAMIDE INJ 10MG/2ML VIAL IV PRN (11:10)
[2024-01-09] MEDS ORDERED: oxyCODONE 5MG TAB PO PRN (11:10)
[2024-01-09] MEDS ORDERED: diphenhydrAMINE 50MG/ML VIAL IV PRN (11:10)
[2024-01-09 11:30] LABS: HEMATOCRIT 47.4 % (42.0-52.0); HEMOGLOBIN 16.2 g/dl (13.5-17.5); MEAN CORPUSCULAR HEMOGLOBIN 31.1 pg (27.0-33.0); MEAN CORPUSCULAR HGB CONC 34.2 g/dl (32.0-36.5); PLATELET COUNT, AUTOMATED 143 10^3/uL (150-450); RED BLOOD COUNT 5.21 10^6/uL (4.30-6.10); WHITE BLOOD COUNT 8.4 10^3/uL (4.0-10.0)
[2024-01-09] MEDS: ONDANSETRON 4MG 2ML VIAL IV PRN (11:30)
[2024-01-09] MEDS: LR 1,000 ML IV SCH (12:15)
[2024-01-09] MEDS ORDERED: DEXTROSE 50% 50ML SYRINGE IV PRN (12:20)
[2024-01-09] MEDS ORDERED: GLUCOSE 4 GM CHEW PO PRN (12:20)
[2024-01-09] MEDS ORDERED: GLUCAGON INJ 1MG VIAL SC PRN (12:20)
[2024-01-09] MEDS: amLODIPine 5 MG TAB PO SCH (12:53)
[2024-01-09] MEDS: DAPAGLIFLOZIN PROPANEDIOL 10MG TABLET (FARXIGA) PO SCH (12:53)
[2024-01-09] MEDS: TAMSULOSIN 0.4 MG CAP PO SCH (12:54)
[2024-01-09] MEDS: INSULIN LISPRO (NovoLOG) PER UNIT SC SCH ×2 (12:54→20:48)
[2024-01-09] MEDS: LOSARTAN 50MG TABLET PO SCH (14:41)
[2024-01-09 16:26] LABS: ALKALINE PHOSPHATASE 60 U/L (46-116); ALT/SGPT 41 U/L (7.0-40); AST/SGOT 45 U/L (<34); BILIRUBIN,TOTAL 3.4 MG/DL (0.3-1.2); BLOOD UREA NITROGEN 22 MG/DL (9-23); CALCIUM LEVEL 8.5 MG/DL (8.3-10.6); CARBON DIOXIDE LEVEL 28 MMOL/L (20-31); CHLORIDE LEVEL 105 MMOL/L (98-107); CREATININE FOR GFR 1.25 MG/DL (0.70-1.30); GLOMERULAR FILTRATION RATE > 60.0 (>49); GLUCOSE, FASTING 123 MG/DL (74-106); POTASSIUM SERUM 4.5 MMOL/L (3.5-5.1); SODIUM LEVEL 139 MMOL/L (136-145); TOTAL PROTEIN 6.4 G/DL (5.7-8.2)
[2024-01-10 04:40] VITALS: BP 140/73; TEMP 97.9; O2SAT 94
[2024-01-10] MEDS: ONDANSETRON 4MG 2ML VIAL IV PRN (05:26)
[2024-01-10] MEDS: MORPHINE 2 MG/ML 1ML VIAL IV PRN (05:27)
[2024-01-10 06:08] LABS: BASO % 0.3 % (0.0-1.0); EOS % 0.1 % (0.0-3.0); HEMATOCRIT 43.1 % (42.0-52.0); HEMOGLOBIN 14.7 g/dl (13.5-17.5); LYMPH # 0.6 10^3/uL (1.5-5.0); LYMPH % 8.5 % (24.0-44.0); MEAN CORPUSCULAR HEMOGLOBIN 30.9 pg (27.0-33.0); MEAN CORPUSCULAR HGB CONC 34.1 g/dl (32.0-36.5); MEAN CORPUSCULAR VOLUME 90.7 fl (80.0-96.0); MONO # 0.3 10^3/uL (0.0-0.8); MONO % 4.2 % (2.0-8.0); NEUTROPHILS # 5.9 10^3/uL (1.5-8.5); NEUTROPHILS % 86.6 % (36.0-66.0); PLATELET COUNT, AUTOMATED 143 10^3/uL (150-450); RED BLOOD COUNT 4.75 10^6/uL (4.30-6.10); WHITE BLOOD COUNT 6.9 10^3/uL (4.0-10.0)
[2024-01-10 06:45] LABS: ALBUMIN 2.7 G/DL (3.2-5.2); ALKALINE PHOSPHATASE 61 U/L (46-116); ALT/SGPT 47 U/L (7.0-40); AST/SGOT 49 U/L (<34); BILIRUBIN,TOTAL 2.7 MG/DL (0.3-1.2); BLOOD UREA NITROGEN 25 MG/DL (9-23); CALCIUM LEVEL 8.4 MG/DL (8.3-10.6); CARBON DIOXIDE LEVEL 23 MMOL/L (20-31); CHLORIDE LEVEL 106 MMOL/L (98-107); CREATININE FOR GFR 1.06 MG/DL (0.70-1.30); GLOMERULAR FILTRATION RATE > 60.0 (>49); GLUCOSE, FASTING 112 MG/DL (74-106); MAGNESIUM LEVEL 2.2 MG/DL (1.8-2.4); POTASSIUM SERUM 4.3 MMOL/L (3.5-5.1); SODIUM LEVEL 138 MMOL/L (136-145); TOTAL PROTEIN 6.1 G/DL (5.7-8.2)
[2024-01-10 08:00] VITALS: BP 150/70; TEMP 98.1; O2SAT 96
[2024-01-10 09:11] VITALS: BP 150/70
[2024-01-10] MEDS ORDERED: PERCOCET PO (09:57)
[2024-01-10] MEDS ORDERED: CIPR-249 PO (09:57)
[2024-01-10] MEDS ORDERED: METR-265 PO (09:57)
[2024-01-10] MEDS: PERCOCET 5MG/325MG TAB PO PRN (09:59)
[2024-01-10 12:00] VITALS: BP 161/83; TEMP 97.7; O2SAT 94
[2024-01-10] MEDS: HEPARIN SOD (PORCINE) 5000UNITS/ML 1ML VIAL/SYRINGE SC SCH (14:00)
== END 2024-01-10 14:25 | disposition home or self-care (01) | DRG 263 ==
LOC: M ED 15:25 → M ED INP 17:10 → M MS5PR 17:55
PROVIDERS: ADMIT Internal Medicine; ATTEND Internal Medicine
PROC: 8E0W4CZ Robotic Assisted Procedure of Trunk Region, Percutaneous Endoscopic Approach (ICD-10-PCS; 2024-01-09)
PROC: 0FT44ZZ Resection of Gallbladder, Percutaneous Endoscopic Approach (ICD-10-PCS; principal; 2024-01-09 07:30)
DX: K81.0 Acute cholecystitis (principal); E11.21 Type 2 diabetes mellitus with diabetic nephropathy; I10 Essential (primary) hypertension; E78.5 Hyperlipidemia, unspecified; N40.0 Benign prostatic hyperplasia without lower urinary tract symptoms; E80.6 Other disorders of bilirubin metabolism; E11.40 Type 2 diabetes mellitus with diabetic neuropathy, unspecified; N32.81 Overactive bladder; G47.33 Obstructive sleep apnea (adult) (pediatric); Z87.442 Personal history of urinary calculi; Z79.82 Long term (current) use of aspirin; Z79.899 Other long term (current) drug therapy

== ENCOUNTER → 2024-01-08 | Outpatient (CLI) | payer BC ==
[~2024-01-08] MED LIST changes: +CIPR-249 PO; +GASTROGRAFIN SOLUTION 30ML As Ordered ONE; +ISOVUE-370 76% 100ML VIAL As Ordered ONE; +METR-265 PO; +PERCOCET PO; +THERTAB19 PO; +TIRZ10PE INJ
== END ==
LOC: M RAD 12:42
PROVIDERS: ATTEND Nurse Practitioner Adult Health
DX: R10.11 Right upper quadrant pain (principal)

== ENCOUNTER → 2024-01-27 | Outpatient (CLI) | payer BC ==
[~2024-01-27] MED LIST changes: +CIPR-249 PO; +METR-265 PO; +PERCOCET PO; +THERTAB19 PO; +TIRZ10PE INJ
== END ==
LOC: M RAD 12:32
PROVIDERS: ATTEND Physician Assistant
DX: M51.17 Intervertebral disc disorders with radiculopathy, lumbosacral region (principal)

== ENCOUNTER → 2024-03-02 | Outpatient (CLI) | payer BC ==
[2024-03-02 11:09] LABS: CHOLESTEROL RISK RATIO 2.93 (<5); HDL CHOLESTEROL 42.2 MG/DL (>40); LDL CHOLESTEROL 61.8 MG/DL (<100); NON-HDL-C 81.8 MG/DL
== END ==
LOC: M PLALAB 07:28
PROVIDERS: ATTEND Internal Medicine Cardiovascular Disease
DX: E78.00 Pure hypercholesterolemia, unspecified (principal)

== ENCOUNTER → 2024-03-02 | Outpatient (CLI) | payer BC | LOC: M PLALAB 07:25 | PROVIDERS: ATTEND Physician Assistant | DX: R97.20 Elevated prostate specific antigen [PSA] (principal) ==

== ENCOUNTER → 2024-04-07 | Outpatient (CLI) | payer BC | LOC: M CARPUL 09:13 | PROVIDERS: ATTEND Registered Nurse | DX: I35.8 Other nonrheumatic aortic valve disorders (principal); R06.02 Shortness of breath ==

== ENCOUNTER → 2024-04-25 | Outpatient (CLI) | payer BC ==
[2024-04-25 12:33] LABS: BASO % 0.4 % (0.0-1.0); EOS # 0.1 10^3/uL (0.0-0.5); EOS % 2.6 % (0.0-3.0); HEMATOCRIT 49.7 % (42.0-52.0); HEMOGLOBIN 16.2 g/dl (13.5-17.5); LYMPH # 1.4 10^3/uL (1.5-5.0); LYMPH % 25.3 % (24.0-44.0); MEAN CORPUSCULAR HEMOGLOBIN 29.1 pg (27.0-33.0); MEAN CORPUSCULAR HGB CONC 32.6 g/dl (32.0-36.5); MEAN CORPUSCULAR VOLUME 89.2 fl (80.0-96.0); MONO # 0.4 10^3/uL (0.0-0.8); MONO % 6.5 % (2.0-8.0); NEUTROPHILS # 3.5 10^3/uL (1.5-8.5); NEUTROPHILS % 64.8 % (36.0-66.0); PLATELET COUNT, AUTOMATED 196 10^3/uL (150-450); RED BLOOD COUNT 5.57 10^6/uL (4.30-6.10); WHITE BLOOD COUNT 5.4 10^3/uL (4.0-10.0)
[2024-04-25 12:42] LABS: HEMOGLOBIN A1c 5.6 % (4.0-6.0)
[2024-04-25 12:58] LABS: ALBUMIN 3.7 G/DL (3.2-5.2); ALKALINE PHOSPHATASE 85 U/L (40-129); ALT/SGPT 27 U/L (7.0-40); AST/SGOT 19 U/L (<34); BILIRUBIN,TOTAL 0.8 MG/DL (0.3-1.2); BLOOD UREA NITROGEN 21 MG/DL (9-23); CALCIUM LEVEL 8.8 MG/DL (8.3-10.6); CARBON DIOXIDE LEVEL 31 MMOL/L (20-31); CHLORIDE LEVEL 102 MMOL/L (98-107); CHOLESTEROL LEVEL 127 MG/DL (<200); CHOLESTEROL RISK RATIO 2.77 (<5); CREATININE FOR GFR 1.11 MG/DL (0.70-1.30); GLOMERULAR FILTRATION RATE > 60.0 (>49); GLUCOSE, FASTING 122 MG/DL (74-106); HDL CHOLESTEROL 45.8 MG/DL (>40); LDL CHOLESTEROL 62.2 MG/DL (<100); NON-HDL-C 81.2 MG/DL; POTASSIUM SERUM 4.4 MMOL/L (3.5-5.1); SODIUM LEVEL 142 MMOL/L (136-145); TOTAL PROTEIN 7.2 G/DL (5.7-8.2); TRIGLYCERIDES LEVEL 95 MG/DL (<150)
== END ==
LOC: M PLALAB 07:48
PROVIDERS: ATTEND Physician Assistant
DX: E11.40 Type 2 diabetes mellitus with diabetic neuropathy, unspecified (principal); E78.2 Mixed hyperlipidemia; R97.20 Elevated prostate specific antigen [PSA]

== ENCOUNTER → 2024-10-17 | Outpatient (CLI) | payer BC ==
[~2024-10-17] MED LIST changes: -FLOM0.4C39 PO; +TAMS-18 PO
[2024-10-17 10:52] LABS: ALT/SGPT 23.0 U/L (7.0-40); AST/SGOT 22.0 U/L (<34); BASO # 0.0 10^3/uL (0.0-0.2); BASO % 0.5 % (0.0-1.0); CALCIUM LEVEL 8.1 MG/DL (8.3-10.6); CARBON DIOXIDE LEVEL 29.0 MMOL/L (20-31); CHLORIDE LEVEL 103.0 MMOL/L (98-107); CHOLESTEROL LEVEL 111.0 MG/DL (<200); CHOLESTEROL RISK RATIO 2.87 (<5); CREATININE FOR GFR 1.14 MG/DL (0.70-1.30); EOS # 0.1 10^3/uL (0.0-0.5); EOS % 2.0 % (0.0-3.0); GLOMERULAR FILTRATION RATE 72.3 (>49); LDL CHOLESTEROL 51.4 MG/DL (<100); LYMPH # 1.1 10^3/uL (1.5-5.0); LYMPH % 17.9 % (24.0-44.0); MONO # 0.4 10^3/uL (0.0-0.8); MONO % 6.1 % (2.0-8.0); NEUTROPHILS # 4.7 10^3/uL (1.5-8.5); NEUTROPHILS % 73.2 % (36.0-66.0); NON-HDL-C 72.4 MG/DL; PLATELET COUNT, AUTOMATED 219 10^3/uL (150-450); POTASSIUM SERUM 3.9 MMOL/L (3.5-5.1); PSA SCREENING 3.12 NG/ML (< 4.00); SODIUM LEVEL 142.0 MMOL/L (136-145); TRIGLYCERIDES LEVEL 105.0 MG/DL (<150)
[2024-10-17 11:01] LABS: ESTIMATED AVERAGE GLUCOSE 128.0 MG/DL (60-110)
[2024-10-17 11:22] LABS: CREATININE, URINE 110.4 MG/DL; MALB URINE SIEMENS 14.0 MG/L; MAU/CREAT RATIO 12.6 MCG/MG (0.0-30.0)
== END ==
LOC: M PLALAB 07:53
PROVIDERS: ATTEND Physician Assistant
DX: E11.40 Type 2 diabetes mellitus with diabetic neuropathy, unspecified (principal)